=== PATIENT | female | born 1945 | race African-American/Black ===

== ENCOUNTER 2017-12-16 17:27 | Observation (INO) ==
[2017-12-16] MEDS ORDERED: 0.9 % Sodium Chloride 1,000 ML IVC ONE (17:30)
--- NOTE | 2017-12-16 17:34 | Emergency Department Note ---
Disposition Clinical Impression: Hypertensive urgency, Chest pain, Syncope and collapse Disposition: Admitted As Inpatient Condition: Good General Adult HPI - General Stated complaint: high blood pressue, loc Time Seen by Provider: 12/16/17 17:29 Source: patient, family, EMS Mode of arrival: EMS Limitations: no limitations Nursing Notes Reviewed: Yes Vital Signs Reviewed: Yes - History of Present Illness HPI Narrative: Patient presents to the ED with the chief complaint of hypertension. Patient was at the doctor's office today and had a flu shot. States that her blood pressure is running very high and she had a syncopal episode. She is been complaining of a headache, some blurry vision, no focal numbness or weakness. She is describing some chest pressure and heaviness as well as shortness of breath. Also having nausea but no abdominal pain or vomiting. No diarrhea. States she has a history of hypertension and is on "all of the medicine." - Related Data Home Medications Medication Instructions Recorded Confirmed RX: Aspirin 81 mg PO DAILY 07/18/15 12/16/17 RX: Benazepril HCl [Lotensin] 20 mg PO DAILY 07/18/15 12/16/17 RX: Docusate [Colace] 100 mg PO DAILY 07/18/15 12/16/17 RX: Fluticasone Propionate Nasal 2 spr NS DAILY 07/18/15 12/16/17 [Flonase] RX: Hydrochlorothiazide [Microzide] 12.5 mg PO DAILY 07/18/15 12/16/17 RX: Isosorbide MONOnitrate (24 HR) 30 mg PO DAILY 07/18/15 12/16/17 [Imdur] RX: Metformin HCl [Glucophage] 1,000 mg PO BID 07/18/15 12/16/17 RX: Rosuvastatin [Crestor] 20 mg PO DAILY 07/18/15 12/16/17 RX: Tolterodine Tartrate [Detrol] 2 mg PO TID 07/18/15 12/16/17 RX: cloNIDine HCl [CloNIDine HCl] 0.1 mg PO DAILY 07/18/15 12/16/17 Metoprolol Succinate [[place]apsp[place] 100 mg PO BID 12/16/17 12/16/17 Sprinkle] Allergies Allergy/AdvReac Type Severity Reaction Status Date / Time nitrofurantoin AdvReac Hives Verified 07/18/15 17:04 [From Macrodantin] Review of Systems: As reviewed in the HPI. All other systems reviewed are negative or normal. Past Medical History - Past Medical History Attestation: Yes The following information was validated with the patient. Source: patient Medical history: Reports: arthritis, cardiomyopathy (August 2012 echocardiogram demonstrated mild diastolic dysfunction with LVEF of 65% mild concentric hypertrophy. Mild mitral regurgitation and mild tricuspid regurgitation. RVSP 29 mmHg.), diabetes, GERD, hyperlipidemia, hypertension, osteoporosis, renal disease (Stress urinary incontinence), venous stasis, valvular heart disease, other (Seasonal allergies. Obesity.) Surgical history: Reports: breast surgery (Right lumpectomy.), hysterectomy, other (Bladder suspension.) Psychiatric history: Reports: no psych history - Social History Smoking Status: Never smoker Smokeless Tobacco Status: No Alcohol use: Reports: none Drug use: Reports: none Physical Exam CONSTITUTIONAL: [well appearing, alert and in no acute distress] EYES: [EOMI, clear conjunctiva, PERRLA] HENT: [Normocephalic, atraumatic, moist mucus membranes, normal oropharynx] NECK: [normal inspection, full ROM, trachea midline, no obvious swelling] PULMONARY: [normal lung sounds bilaterally, normal chest rise and fall, no respiratory distress or stridor, no wheezes, no rales, no rhonchi CARDIOVASCULAR: [regular rate, regular rhythm, normal heart sounds, no murmurs, distal extremities are warm and well perfused] GASTROINSTESTINAL: [soft, non-tender, non-rigid, non-distended, no guarding, no rebound, normal bowel sounds] GENITOURINARY/RECTAL: [deferred] NEUROLOGIC: [Alert, oriented x3, normal speech, moves all extremities] EXTREMITIES: [Normal inspection, full ROM, no tenderness, no pedal edema, normal capillary refill] MUSCULOSKELETAL: [no gross deformities, atraumatic] SKIN: [No cyanosis, no diaphoresis, normal color, warm, no rash] PSYCHIATRIC: [normal mood and affect] Course Course Narrative: Patient presenting extremely hypertensive. We will get a stat head CT and if there is no obvious stroke. We will give her IV medications appearing her blood pressure down for suspected hypertensive urgency. Patient's CT looked okay. Chest x-ray did show some pulmonary edema with an elevated BNP. Patient started on nitroglycerin drip and admitted to hospitalist service. Vital Signs Temperature 99.0 F 12/16/17 17:38 Pulse Rate 116 12/16/17 17:38 Respiratory Rate 21 12/16/17 17:38 Blood Pressure 191/89 12/16/17 17:38 O2 Sat by Pulse Oximetry 99 12/16/17 17:38 Temperature 98.5 F 12/16/17 21:04 Pulse Rate 115 12/16/17 21:04 Respiratory Rate 16 12/16/17 21:04 Blood Pressure 183/87 12/16/17 21:04 O2 Sat by Pulse Oximetry 94 12/16/17 21:04 Oxygen Delivery Oxygen Delivery Room Air Medical Decision Making - Lab Data Result diagrams: 12/16/17 17:52 12/16/17 17:52 Lab Results 12/16/17 12/16/17 12/16/17 Range/Units 17:52 17:52 17:52 WBC 10.0 (4.3-11.1) K/mcL RBC 5.17 H (3.82-4.97) M/mcL Hgb 14.4 (11.5-15.4) g/dL Hct 43.8 (35.3-44.9) % MCV 84.7 (83.0-100.0) fL MCH 27.9 L (28.0-33.3) pg MCHC 32.9 (31.6-35.5) g/dL RDW 13.2 (11.5-14.5) % Plt Count 300 (140-400) K/mcL MPV 9.5 (9.4-12.4) fL Immature Gran % 0.3 (0-4) % Seg Neutrophils % 78.2 % Lymphocytes % 14.3 % Monocytes % 6.5 % Eosinophils % 0.3 % Basophils % 0.4 % Neutrophils # 7.9 (1.6-8.9) K/mcL Lymphocytes # 1.4 (0.6-4.6) K/mcL Monocytes # 0.7 (0.0-1.3) K/mcL Eosinophils # 0.0 (0.0-0.6) K/mcL Basophils # 0.0 (0.0-0.2) K/mcL Sodium 137 (136-145) mEq/L Potassium 3.5 (3.5-5.1) mEq/L Chloride 105 (98-107) mEq/L Carbon Dioxide 21 L (23-29) mEq/L BUN 10 (8-23) mg/dL Creatinine 0.48 L (0.60-1.20) mg/dL Est GFR ( Amer) > 60 (> 60) Est GFR (Non-Af Amer) > 60 (> 60) BUN/Creatinine Ratio 21 (6-26) Glucose 182 H (70-105) mg/dL Calculated Osmolality 288 (280-300) Lactic Acid 2.0 (0.5-2.2) mmol/L Calcium 9.1 (8.6-10.3) mg/dL Phosphorus 2.6 L (2.7-4.5) mg/dL Magnesium 1.6 (1.6-2.6) mg/dL Creatine Kinase 81 (30-223) Units/L Troponin I (< 0.04) ng/mL B-Natriuretic Peptide (Less than 100) pg/mL TSH 0.649 (0.340-5.600) mcIU/mL Urine Color (Yellow) Urine Clarity (Clear) Urine pH (5.0-8.0) pH Units Ur Specific [place] (1.010-1.025) Urine Protein (Neg-Trace) mg/dL Urine Glucose (UA) (Normal) mg/dL Urine Ketones (Negative) mg/dL Urine Blood (Negative) Urine Nitrite (Negative) Urine Bilirubin (Negative) Urine Urobilinogen (Normal) mg/dL Ur Leukocyte Esterase (Negative) Urine Microscopic RBC (0-3) per hpf Urine Microscopic WBC (0-3) per hpf Ur Squamous Epith Cells (None-Few) per lpf Urine Bacteria (None-Few) per hpf Hyaline Casts (None-Few) per lpf Ur Culture Indicated? (NO) 12/16/17 12/16/17 12/16/17 Range/Units 17:52 17:52 19:03 WBC (4.3-11.1) K/mcL RBC (3.82-4.97) M/mcL Hgb (11.5-15.4) g/dL Hct (35.3-44.9) % MCV (83.0-100.0) fL MCH (28.0-33.3) pg MCHC (31.6-35.5) g/dL RDW (11.5-14.5) % Plt Count (140-400) K/mcL MPV (9.4-12.4) fL Immature Gran % (0-4) % Seg Neutrophils % % Lymphocytes % % Monocytes % % Eosinophils % % Basophils % % Neutrophils # (1.6-8.9) K/mcL Lymphocytes # (0.6-4.6) K/mcL Monocytes # (0.0-1.3) K/mcL Eosinophils # (0.0-0.6) K/mcL Basophils # (0.0-0.2) K/mcL Sodium (136-145) mEq/L Potassium (3.5-5.1) mEq/L Chloride (98-107) mEq/L Carbon Dioxide (23-29) mEq/L BUN (8-23) mg/dL Creatinine (0.60-1.20) mg/dL Est GFR ( Amer) (> 60) Est GFR (Non-Af Amer) (> 60) BUN/Creatinine Ratio (6-26) Glucose (70-105) mg/dL Calculated Osmolality (280-300) Lactic Acid (0.5-2.2) mmol/L Calcium (8.6-10.3) mg/dL Phosphorus (2.7-4.5) mg/dL Magnesium (1.6-2.6) mg/dL Creatine Kinase (30-223) Units/L Troponin I < 0.03 (< 0.04) ng/mL B-Natriuretic Peptide 75 (Less than 100) pg/mL TSH (0.340-5.600) mcIU/mL Urine Color Yellow (Yellow) Urine Clarity Clear (Clear) Urine pH 6.5 (5.0-8.0) pH Units Ur Specific [place] 1.019 (1.010-1.025) Urine Protein 30 H (Neg-Trace) mg/dL Urine Glucose (UA) 100 H (Normal) mg/dL Urine Ketones 15 H (Negative) mg/dL Urine Blood Negative (Negative) Urine Nitrite Negative (Negative) Urine Bilirubin Negative (Negative) Urine Urobilinogen Normal (Normal) mg/dL Ur Leukocyte Esterase Small H (Negative) Urine Microscopic RBC 0-3 (0-3) per hpf Urine Microscopic WBC 3-5 H (0-3) per hpf Ur Squamous Epith Cells Many H (None-Few) per lpf Urine Bacteria None Seen (None-Few) per hpf Hyaline Casts None Seen (None-Few) per lpf Ur Culture Indicated? NO. A (NO) Critical Care Time Critical Care Time: Yes Total Critical Care Time: 35 Attestation: I personally spent ___35___ minutes devoted to the care of this critically ill patient. This time excludes the time for billable procedures.
--- NOTE | 2017-12-16 17:49 | Emergency Department Note ---
Disposition Clinical Impression: Hypertensive urgency, Chest pain, Syncope and collapse Disposition: Admitted As Inpatient Condition: Good Forms: ED Satisfaction Letter, Work/School Release General Adult HPI - General Chief complaint: ED General Medical Stated complaint: high blood pressue, loc Time Seen by Provider: 12/16/17 17:29 Source: patient, family, EMS Mode of arrival: EMS Limitations: no limitations - History of Present Illness Pain Scale: 10 - Related Data Home Medications Medication Instructions Recorded Confirmed Aspirin 81 mg PO DAILY 07/18/15 07/18/15 Benazepril HCl [Lotensin] 20 mg PO DAILY 07/18/15 07/18/15 Docusate [Colace] 100 mg PO DAILY 07/18/15 07/18/15 Fluticasone Propionate Nasal 2 spr NS DAILY 07/18/15 07/18/15 [Flonase] Hydrochlorothiazide [Microzide] 12.5 mg PO DAILY 07/18/15 07/18/15 Isosorbide MONOnitrate (24 HR) 30 mg PO DAILY 07/18/15 07/18/15 [Imdur] Metformin HCl [Glucophage] 1,000 mg PO BID 07/18/15 07/18/15 Omeprazole [PriLOSEC] 20 mg PO BID 07/18/15 07/18/15 Rosuvastatin [Crestor] 20 mg PO DAILY 07/18/15 07/18/15 Tolterodine Tartrate [Detrol] 2 mg PO DAILY 07/18/15 07/18/15 cloNIDine HCl [CloNIDine HCl] 0.1 mg PO DAILY 07/18/15 07/18/15 Previous Rx's Medication Instructions Recorded Metoprolol [Lopressor] 75 mg PO BID #90 tablet 07/20/15 Nitroglycerin 0.4 mg SL Q5MIN PRN #20 tab.subl 07/20/15 Allergies Allergy/AdvReac Type Severity Reaction Status Date / Time nitrofurantoin AdvReac Hives Verified 07/18/15 17:04 [From Macrodantin] Past Medical History - Past Medical History Medical history: Reports: arthritis, cardiomyopathy, diabetes, GERD, hyperlipidemia, hypertension, osteoporosis, renal disease, venous stasis, valvular heart disease, other Surgical history: Reports: breast surgery (Right lumpectomy.), hysterectomy, other (Bladder suspension.) Psychiatric history: Reports: no psych history - Social History Smoking Status: Never smoker Smokeless Tobacco Status: No Alcohol use: Reports: none Drug use: Reports: none Physical Exam - General Limitations: no limitations General appearance: alert, in no apparent distress Course Vital Signs Temperature 99.0 F 12/16/17 17:38 Pulse Rate 116 12/16/17 17:38 Respiratory Rate 21 12/16/17 17:38 Blood Pressure 191/89 12/16/17 17:38 O2 Sat by Pulse Oximetry 99 12/16/17 17:38 Temperature 99.0 F 12/16/17 17:38 Pulse Rate 114 12/16/17 18:55 Respiratory Rate 18 12/16/17 18:55 Blood Pressure 186/100 12/16/17 18:55 O2 Sat by Pulse Oximetry 96 12/16/17 18:55 Oxygen Delivery Oxygen Delivery Room Air Medical Decision Making - MDM Narrative Medical decision making narrative: ekg with some changes as mentioned nitro gtt going ct head neg - Medical Records Medical records reviewed: Yes I reviewed the patient's medical records. - Lab Data Lab results reviewed: Yes I reviewed the patient's lab results. Result diagrams: 12/16/17 17:52 12/16/17 17:52 Lab Results 12/16/17 12/16/17 12/16/17 Range/Units 17:52 17:52 17:52 WBC 10.0 (4.3-11.1) K/mcL RBC 5.17 H (3.82-4.97) M/mcL Hgb 14.4 (11.5-15.4) g/dL Hct 43.8 (35.3-44.9) % MCV 84.7 (83.0-100.0) fL MCH 27.9 L (28.0-33.3) pg MCHC 32.9 (31.6-35.5) g/dL RDW 13.2 (11.5-14.5) % Plt Count 300 (140-400) K/mcL MPV 9.5 (9.4-12.4) fL Immature Gran % 0.3 (0-4) % Seg Neutrophils % 78.2 % Lymphocytes % 14.3 % Monocytes % 6.5 % Eosinophils % 0.3 % Basophils % 0.4 % Neutrophils # 7.9 (1.6-8.9) K/mcL Lymphocytes # 1.4 (0.6-4.6) K/mcL Monocytes # 0.7 (0.0-1.3) K/mcL Eosinophils # 0.0 (0.0-0.6) K/mcL Basophils # 0.0 (0.0-0.2) K/mcL Sodium 137 (136-145) mEq/L Potassium 3.5 (3.5-5.1) mEq/L Chloride 105 (98-107) mEq/L Carbon Dioxide 21 L (23-29) mEq/L BUN 10 (8-23) mg/dL Creatinine 0.48 L (0.60-1.20) mg/dL Est GFR ( Amer) > 60 (> 60) Est GFR (Non-Af Amer) > 60 (> 60) BUN/Creatinine Ratio 21 (6-26) Glucose 182 H (70-105) mg/dL Calculated Osmolality 288 (280-300) Lactic Acid 2.0 (0.5-2.2) mmol/L Calcium 9.1 (8.6-10.3) mg/dL Phosphorus 2.6 L (2.7-4.5) mg/dL Magnesium 1.6 (1.6-2.6) mg/dL Creatine Kinase 81 (30-223) Units/L Troponin I (< 0.04) ng/mL TSH 0.649 (0.340-5.600) mcIU/mL 12/16/17 Range/Units 17:52 WBC (4.3-11.1) K/mcL RBC (3.82-4.97) M/mcL Hgb (11.5-15.4) g/dL Hct (35.3-44.9) % MCV (83.0-100.0) fL MCH (28.0-33.3) pg MCHC (31.6-35.5) g/dL RDW (11.5-14.5) % Plt Count (140-400) K/mcL MPV (9.4-12.4) fL Immature Gran % (0-4) % Seg Neutrophils % % Lymphocytes % % Monocytes % % Eosinophils % % Basophils % % Neutrophils # (1.6-8.9) K/mcL Lymphocytes # (0.6-4.6) K/mcL Monocytes # (0.0-1.3) K/mcL Eosinophils # (0.0-0.6) K/mcL Basophils # (0.0-0.2) K/mcL Sodium (136-145) mEq/L Potassium (3.5-5.1) mEq/L Chloride (98-107) mEq/L Carbon Dioxide (23-29) mEq/L BUN (8-23) mg/dL Creatinine (0.60-1.20) mg/dL Est GFR ( Amer) (> 60) Est GFR (Non-Af Amer) (> 60) BUN/Creatinine Ratio (6-26) Glucose (70-105) mg/dL Calculated Osmolality (280-300) Lactic Acid (0.5-2.2) mmol/L Calcium (8.6-10.3) mg/dL Phosphorus (2.7-4.5) mg/dL Magnesium (1.6-2.6) mg/dL Creatine Kinase (30-223) Units/L Troponin I < 0.03 (< 0.04) ng/mL TSH (0.340-5.600) mcIU/mL - Radiology Data Radiology results reviewed: Yes I reviewed the patient's radiology results. Critical Care Time Critical Care Time: Yes Total Critical Care Time: 35 Attestation: CC time of 35 min spent in med management of HTN urgency. Nitro gtt. Attestation Statement - Attestation Attestation: I examined this patient and my medical decision-making was reviewed with the Resident Physician. I agree with the documented findings, disposition and treatment plan as described except to the extent set forth below. 72yo F here for syncope after flu shot and cocerns for HTN. pt states was at pcp and syncopized after flu shot. noted bp to be greater than 200 systolic with headache, chest pain, nausea. will do ct head, lab work. ekg is abnormal with some ST depression and t wave inversion bP is coming down; in the 190s.
[2017-12-16 18:25] LABS: Basophils % 0.4 %; Eosinophils % 0.3 %; Hematocrit 43.8 % (35.3-44.9); Hemoglobin 14.4 g/dL (11.5-15.4); Immature Granulocytes % 0.3 % (0-4); Lymphocytes # 1.4 K/mcL (0.6-4.6); Lymphocytes % 14.3 %; Mean Corpuscular HGB Conc 32.9 g/dL (31.6-35.5); Mean Corpuscular Hemoglobin 27.9 pg (28.0-33.3); Mean Corpuscular Volume 84.7 fL (83.0-100.0); Mean Platelet Volume 9.5 fL (9.4-12.4); Monocytes # 0.7 K/mcL (0.0-1.3); Monocytes % 6.5 %; Neutrophils # 7.9 K/mcL (1.6-8.9); Platelet Count 300 K/mcL (140-400); Red Blood Count 5.17 M/mcL (3.82-4.97); Red Cell Distribution Width 13.2 % (11.5-14.5); Segmented Neutrophils % 78.2 %
[2017-12-16 18:45] LABS: BUN/Creatinine Ratio 21 (6-26); Blood Urea Nitrogen 10 mg/dL (8-23); Calcium 9.1 mg/dL (8.6-10.3); Carbon Dioxide 21 mEq/L (23-29); Chloride 105 mEq/L (98-107); Creatine Kinase 81 Units/L (30-223); Glucose 182 mg/dL (70-105); Magnesium 1.6 mg/dL (1.6-2.6); Osmolality,Calculated 288 (280-300); Phosphorous 2.6 mg/dL (2.7-4.5); Potassium 3.5 mEq/L (3.5-5.1); Sodium 137 mEq/L (136-145); eGFR For Non-African Americans > 60 (> 60)
[2017-12-16 18:57] LABS: Thyroid Stimulating Hormone 0.649 mcIU/mL (0.340-5.600)
[2017-12-16] MEDS ORDERED: Nitroglycerin 25 MG/250 ML INFUS..BTL IVC SCH (19:00)
[2017-12-16 19:16] LABS: Bilirubin,Urine Negative (Negative); Blood,Urine Negative (Negative); Clarity,Urine Clear (Clear); Color,Urine Yellow (Yellow); Glucose,Urine (UA) 100 mg/dL (Normal); Ketones,Urine 15 mg/dL (Negative); Leukocyte Esterase,Urine Small (Negative); Nitrite,Urine Negative (Negative); PH,Urine 6.5 pH Units (5.0-8.0); Protein,Urine 30 mg/dL (Neg-Trace); Specific Gravity,Urine 1.019 (1.010-1.025); Urobilinogen,Urine Normal (Normal)
[2017-12-16 19:18] LABS: Bacteria,Urine None Seen per hpf (None-Few); Hyaline Casts,Urine None Seen per lpf (None-Few); RBC,Urine 0-3 per hpf (0-3); Squamous Epithelial Cell,Urine Many per lpf (None-Few)
[2017-12-16] MEDS ORDERED: Aspirin 81 MG TAB.CHEW PO ONE (20:11)
--- NOTE | 2017-12-16 20:50 | Internal Med History&Physical ---
Date of Encounter: 12/16/17 Time of Encounter: 20:46 Internal Medicine - H&P: HPI Chief complaint: High Blood Pressure History of present illness: Ms. Clark is a 72 year old female with a past medical history of diabetes, hypertension, hyperlipidemia who presents from her PCPs office with elevated blood pressure. Patient saw her PCP earlier today and states that she had a syncopal episode after receipt. Blood pressure was noted to be greater than 200 systolic associated with headache, chest pain and nausea. CT scan of the head was done here which was unremarkable. EKG showed some ST depressions and T-wave inversions. Past Med Surg Social Fam HX - Past Medical History Medical history: arthritis, cardiomyopathy, diabetes, GERD, hyperlipidemia, hypertension, osteoporosis, renal disease, venous stasis, valvular heart disease, other Additional medical history: irregular heartbeat Psychiatric history: no psych history - Past Surgical History Surgical History: breast surgery (Right lumpectomy.), hysterectomy, other (Bladder suspension.) Additional surgical history: bladder suspension - Social History Smoking Status: Never smoker Smokeless Tobacco Status: No Alcohol use: none Drug use: none - Family History Mother Hx Family Cardiac Disorders: Yes Father Hx Family Cardiac Disorders: Yes Internal Medicine - H&P: Meds Aspirin 81 mg PO DAILY 07/18/15 [History] Benazepril HCl [Lotensin] 20 mg PO DAILY 07/18/15 [History] Docusate [Colace] 100 mg PO DAILY 07/18/15 [History] Fluticasone Propionate Nasal [Flonase] 2 spr NS DAILY 07/18/15 [History] Hydrochlorothiazide [Microzide] 12.5 mg PO DAILY 07/18/15 [History] Isosorbide MONOnitrate (24 HR) [Imdur] 30 mg PO DAILY 07/18/15 [History] Metformin HCl [Glucophage] 1,000 mg PO BID 07/18/15 [History] Rosuvastatin [Crestor] 20 mg PO DAILY 07/18/15 [History] Tolterodine Tartrate [Detrol] 2 mg PO TID 07/18/15 [History] cloNIDine HCl [CloNIDine HCl] 0.1 mg PO TID 07/18/15 [History] Metoprolol Succinate [[place] Sprinkle] 100 mg PO BID 12/16/17 [History] Allergy/AdvReac Type Severity Reaction Status Date / Time nitrofurantoin AdvReac Hives Verified 07/18/15 17:04 [From Macrodantin] All Systems PM: A 10-system review of systems was performed and is negative for pertinent findings except as documented above in the HPI. - Constitutional Constitutional: no chills, no fever(s), no night sweats - EENT Eyes: no change in vision, no discharge, no pain, no photophobia Ears: no ear discharge, no ear pain, no tinnitus Nose, mouth and throat: no dysphagia, no nasal discharge, no neck pain, no sore throat - Cardiovascular Cardiovascular ROS IM: no chest pain, no diaphoresis, no dyspnea, no lightheadedness, no palpitations, no syncope - Respiratory Respiratory: no cough, no dyspnea, no wheezing, no excessive phlegm production - Gastrointestinal Gastrointestinal: no abdominal pain, no diarrhea, no hematemesis, no hematochezia, no melena, no nausea, no vomiting - Genitourinary Genitourinary: no change in urinary stream, no dysuria, no flank pain, no hematuria - Musculoskeletal Musculoskeletal ROS IM: no numbness, no tingling - Integumentary Integumentary IM: no rash, no unusual bruising - Neurological Neurological ROS: no confusion, no convulsions, no focal weakness, no numbness, no tingling, no tremor(s) - Hematologic/Lymphatic Hematologic/Lymphatic: no easy bruising - Constitutional Vitals: Temp Pulse Resp BP Pulse Ox 99.0 F 113 18 201/88 95 12/16/17 17:38 12/16/17 19:36 12/16/17 19:36 12/16/17 19:36 12/16/17 19:36 Exam: General: Alert and oriented Skin:Normal color, no rash, no lesions. HEENT:EOM, pupils equal, round and reactive. Cardiovascular:Normal S1 & S2, no rubs, murmurs or gallops. No JVD. Pulse regular. Lungs:Normal breath sounds, no wheezes or crackles. Abdomen:Soft, non-tender, no rigidity. Extremities:No deformity, no edema or tenderness, no joint swelling or clubbing. Neurological:Normal cognition and motor skills. Pulses:Carotid and radial pulses normal +2. Rest of the physical exam is non contributory Internal Med - H&P Results - Labs CBC & Chem 7: 12/18/17 03:26 12/19/17 02:49 Labs: Short CBC 12/16/17 Range/Units 17:52 WBC 10.0 (4.3-11.1) K/mcL Hgb 14.4 (11.5-15.4) g/dL Hct 43.8 (35.3-44.9) % Plt Count 300 (140-400) K/mcL Neutrophils # 7.9 (1.6-8.9) K/mcL BMP 12/16/17 17:52 Sodium 137 Potassium 3.5 Chloride 105 Carbon Dioxide 21 L BUN 10 Creatinine 0.48 L Glucose 182 H Calcium 9.1 Cardiac Enzymes 12/16/17 Range/Units 17:52 Troponin I < 0.03 (< 0.04) ng/mL Urine 12/16/17 Range/Units 19:03 Urine Color Yellow (Yellow) Urine Clarity Clear (Clear) Urine pH 6.5 (5.0-8.0) pH Units Ur Specific [place] 1.019 (1.010-1.025) Urine Protein 30 H (Neg-Trace) mg/dL Urine Glucose (UA) 100 H (Normal) mg/dL - Impressions ITS Impressions Chest X-Ray 12/16/17 17:31 IMPRESSION: 1. Cardiomegaly with mild pulmonary edema. D/ / 12/16/2017 18:15:28 Zoila Meyer MD / Soraya Valentine Interpreting Provider: Zoila Meyer MD Head CT 12/16/17 17:31 IMPRESSION: No acute intracranial abnormality. D/ / 12/16/2017 18:40:24 Zoila Meyer MD / Soraya Valentine Interpreting Provider: Zoila Meyer MD - Assessment and plan (1) Chest pain Current Visit: Yes Status: Acute Assessment and plan: Patient reports atypical chest pain in the setting of elevated blood pressure with EKG changes. Initial troponin was negative. Patient has a history of hypertension and diabetes. Looking back at previous admissions, patient underwent left heart catheterization in 2016 with findings of minimal atherosclerotic coronary artery disease and normal left ventricular end diastolic pressure. We will continue to trend. Qualifiers: Qualified Code(s): R07.9 - Chest pain, unspecified (2) Hypertensive urgency Current Visit: Yes Status: Acute Assessment and plan: Hypertensive urgency in the setting of medication noncompliance. Currently on a nitro drip. Blood pressure trending down. We will continue to slowly lower patient's blood pressure. (3) Syncope and collapse Current Visit: Yes Status: Acute Assessment and plan: Syncopal episode prior to receiving flu shot. Most likely vasovagal. However given patient's hypertension. CT scan of the head was negative. No focal neurological deficits. Possibly cardiogenic. We will obtain echocardiogram. (4) Diabetes Current Visit: No Status: Chronic Qualifiers: Diabetes mellitus type: type 2 Diabetes mellitus lobsterman insulin use: without detention use Diabetes mellitus complication status: with unspecified complications Qualified Code(s): E11.8 - Type 2 diabetes mellitus with unspe cified complications (5) Hyperlipidemia Current Visit: No Status: Chronic Qualifiers: Hyperlipidemia type: unspecified Qualified Code(s): E78.5 - Hyperlipidemia, unspecified (6) Hypertension Current Visit: No Status: Chronic Qualifiers: Hypertension type: unspecified secondary hypertension Qualified Code(s): I15.9 - Secondary hypertension, unspecified - Time Spent With Patient Total time spent is greater than 50% in coordination of care (as documented) at patient's floor/unit and/or counseling patient:
[2017-12-16] MEDS ORDERED: Naloxone 0.4 MG/ML INJ IVP PRN (20:54)
[2017-12-16] MEDS ORDERED: D5% in Water 1,000 ML IVC PRN (21:04)
[2017-12-16] MEDS ORDERED: Dextrose Gel 15 GM/37.5 ML TUBE PO PRN ×2 (21:04)
[2017-12-16] MEDS ORDERED: *HR* Dextrose 50 % in Water (Syg) 50 ML SYRINGE IVP PRN (21:04)
[2017-12-16] MEDS ORDERED: *HR* Heparin 5,000 UNIT/ML VIAL SQ SCH (22:00)
[2017-12-16] MEDS: Metoprolol XL (24 HR) Succ 50 MG TAB.ER.24H PO SCH (22:32)
[2017-12-16] MEDS: Insulin LISPRO 300 UNITS/3 ML VIAL SQ SCH (22:53)
[2017-12-16] MEDS ORDERED: *HR* Heparin 5,000 UNIT/ML VIAL IVP ONE (22:58)
[2017-12-16] MEDS ORDERED: *HR* Heparin 5,000 UNIT/ML VIAL IVP PRN ×2 (22:58)
[2017-12-16] MEDS ORDERED: Heparin 25,000 UNIT/500 ML D5W 25,000 UNIT/500 ML BAG IVC SCH (23:00)
[2017-12-17 00:29] LABS: Hematocrit 39.4 % (35.3-44.9); Mean Corpuscular Hemoglobin 27.7 pg (28.0-33.3); Mean Corpuscular Volume 83.8 fL (83.0-100.0); Mean Platelet Volume 9.5 fL (9.4-12.4); Platelet Count 298 K/mcL (140-400); Red Cell Distribution Width 13.3 % (11.5-14.5)
[2017-12-17 00:30] LABS: Heparin anti-factor XA UFH 0.01 IU/mL (0.30-0.70)
[2017-12-17 00:31] LABS: INR 1.1; Prothrombin Time 12.5 Seconds (9.4-12.1)
[2017-12-17] MEDS ORDERED: 0.9 % Sodium Chloride 1,000 ML ONE ×2 (05:35→07:57)
[2017-12-17 07:29] LABS: Basophils % 0.5 %; Eosinophils # 0.1 K/mcL (0.0-0.6); Eosinophils % 1.8 %; Hematocrit 38.3 % (35.3-44.9); Hemoglobin 12.9 g/dL (11.5-15.4); Immature Granulocytes % 0.2 % (0-4); Lymphocytes # 1.9 K/mcL (0.6-4.6); Lymphocytes % 30.1 %; Mean Corpuscular HGB Conc 33.7 g/dL (31.6-35.5); Mean Corpuscular Hemoglobin 28.5 pg (28.0-33.3); Mean Corpuscular Volume 84.5 fL (83.0-100.0); Mean Platelet Volume 9.9 fL (9.4-12.4); Monocytes # 0.5 K/mcL (0.0-1.3); Monocytes % 8.7 %; Neutrophils # 3.6 K/mcL (1.6-8.9); Platelet Count 289 K/mcL (140-400); Red Blood Count 4.53 M/mcL (3.82-4.97); Red Cell Distribution Width 13.8 % (11.5-14.5); Segmented Neutrophils % 58.7 %
[2017-12-17] MEDS: hydroCHLOROthiazide 25 MG TABLET PO SCH (07:38)
[2017-12-17] MEDS: Aspirin 81 MG TAB.CHEW PO SCH (07:39)
[2017-12-17] MEDS: Metoprolol XL (24 HR) Succ 50 MG TAB.ER.24H PO SCH ×2 (07:40→20:55)
[2017-12-17] MEDS: Isosorbide MONOnitrate (24 HR) 30 MG TAB.ER.24H PO SCH (07:40)
[2017-12-17] MEDS: Insulin LISPRO 300 UNITS/3 ML VIAL SQ SCH ×4 (07:41→21:43)
[2017-12-17] MEDS: Fluticasone Propionate Nasal 50 MCG/SPRAY BOTTLE NS SCH (07:42)
[2017-12-17 07:49] LABS: Alanine Aminotransferase 10 Units/L (7-52); Albumin 3.6 g/dL (3.5-5.7); Albumin/Globulin Ratio 1.5 (1.1-2.2); Alkaline Phosphatase 86 Units/L (34-104); Aspartate Amino Transferase 12 Units/L (13-39); BUN/Creatinine Ratio 15 (6-26); Bilirubin,Total 0.5 mg/dL (0.3-1.0); Blood Urea Nitrogen 6 mg/dL (8-23); Calcium 8.6 mg/dL (8.6-10.3); Carbon Dioxide 20 mEq/L (23-29); Chloride 109 mEq/L (98-107); Globulin 2.4 g/dL (2.4-3.5); Glucose 197 mg/dL (70-105); Magnesium 1.7 mg/dL (1.6-2.6); Osmolality,Calculated 287 (280-300); Potassium 3.5 mEq/L (3.5-5.1); Sodium 137 mEq/L (136-145); eGFR For Non-African Americans > 60 (> 60)
[2017-12-17] MEDS ORDERED: cloNIDine HCl 0.1 MG TABLET PO SCH (09:00)
[2017-12-17] MEDS ORDERED: Lisinopril 20 MG TABLET PO SCH (09:00)
--- NOTE | 2017-12-17 10:46 | Cardiology Consult Note ---
Date of Encounter: 12/17/17 Time of Encounter: 10:45 Assessment and Plan (1) Chest pain Current Visit: Yes Status: Acute Per Cardiology: ECG comparable to baseline and has LVH appearance. Atypical chest pain occurring at rest and reproducible today upon palpation. Has hx of persistent intermittent dry hacking cough over the past one year. Troponins negative 3. He underwent left heart catheterization for abnormal stress test results June 2015 and showed Prox. circumflex nonobstructive 20% lesion only. Echo pending. Will await echo results. Would not recommend stress testing or further ischemic evaluation this time unless any abnormal findings on echo-- additionally, patient has eaten today, on long-acting nitrate, and nitro drip. Additionally, has history of abnormal stress test in the past with nonobstructive CAD with subsequent catheterization. On aspirin, statin, beta melvin, ANDRE inhibitor, long-acting nitrate. We will discontinue IV heparin drip-- will resume subcutaneous heparin for DVT prophylaxis. Qualifiers: Qualified Code(s): R07.9 - Chest pain, unspecified (2) Hypertensive urgency Current Visit: Yes Status: Acute Per Cardiology: Appears improved. Patient reports recent medical noncompliance due to running out of medications over the past few days. Will increase ANDRE inhibitor and attempt weaning off nitro drip. (3) Syncope and collapse Current Visit: Yes Status: Acute Per Cardiology: Echo and carotid duplex pending. Telemetry reviewed with sinus rhythm average heart rate 86 and a couple episodes of atrial tachycardia. Check orthostatics. Discussion w patient/family: The assessment and plan as outlined above was discussed with the patient and/or family members who expressed understanding and agreement. All questions were answered. Thank you for involving us in the care of your patient. Please call with any questions. History of Present Illness Consult date: 12/17/17 Requesting physician: Nicky Cohen Consult reason: CP Chief complaint: CP, Passed Out History of present illness: Ms. Clark is a 72 year old AA female with a relevant past mental history of DM 2, HTN, HLD, GERD, obesity, and nonobstructive CAD on catheterization June 2015. Cardiology consult for chest pain in setting of hypertension and concerns of ECG changes. Patient reports has been experiencing persistent cough for the past one year with occasional production of clear sputum. She reports occasional with coughing she developed nausea with vomiting. She reports intermittent left anterior chest wall and mid epigastric pain and discomfort with palpation. She reports symptoms somewhat worsening with coughing. She reports recently ran out of medications and had been taking for the past few days. She reports yesterday followed up with PCP and noted to be hypertensive. She reports episodes of getting off exam table and apparently passed out-- he should not cannot recall details around situation. She denies any palpitations. Denies any awareness of any active bleeding or blood loss. Denies any recent fever, chills, diarrhea. Past Med Surg Social Fam HX - Past Medical History Attestation: Yes The following information was validated with the patient. Source: patient, old records reviewed Medical history: arthritis, cardiomyopathy (August 2012 echocardiogram demonstrated mild diastolic dysfunction with LVEF of 65% mild concentric hypertrophy. Mild mitral regurgitation and mild tricuspid regurgitation. RVSP 29 mmHg.), diabetes, GERD, hyperlipidemia, hypertension, osteoporosis, renal disease (Stress urinary incontinence), venous stasis, valvular heart disease, other (Seasonal allergies. Obesity.) Additional medical history: irregular heartbeat Psychiatric history: no psych history - Past Surgical History Surgical History: breast surgery (Right lumpectomy.), hysterectomy, other (Bladder suspension.) Additional surgical history: bladder suspension - Social History Smoking Status: Never smoker Smokeless Tobacco Status: No Alcohol use: none Drug use: none - Family History Mother Hx Family Cardiac Disorders: Yes Father Hx Family Cardiac Disorders: Yes Medications and Allergies Aspirin 81 mg PO DAILY 07/18/15 [History] Benazepril HCl [Lotensin] 20 mg PO DAILY 07/18/15 [History] Docusate [Colace] 100 mg PO DAILY 07/18/15 [History] Fluticasone Propionate Nasal [Flonase] 2 spr NS DAILY 07/18/15 [History] Hydrochlorothiazide [Microzide] 12.5 mg PO DAILY 07/18/15 [History] Isosorbide MONOnitrate (24 HR) [Imdur] 30 mg PO DAILY 07/18/15 [History] Metformin HCl [Glucophage] 1,000 mg PO BID 07/18/15 [History] Rosuvastatin [Crestor] 20 mg PO DAILY 07/18/15 [History] Tolterodine Tartrate [Detrol] 2 mg PO TID 07/18/15 [History] cloNIDine HCl [CloNIDine HCl] 0.1 mg PO DAILY 07/18/15 [History] Metoprolol Succinate [[place] Sprinkle] 100 mg PO BID 12/16/17 [History] Allergy/AdvReac Type Severity Reaction Status Date / Time nitrofurantoin AdvReac Hives Verified 07/18/15 17:04 [From Macrodantin] All Systems Review: The remainder of the systems were reviewed and are negative - Cardiovascular Cardiovascular: as per HPI, chest pain at rest, lightheadedness, syncope - Respiratory Respiratory: cough - Gastrointestinal Gastrointestinal: nausea Physical Examination Vital Signs, Last 4 Hours Temp Pulse Resp BP Pulse Ox 12/17/17 07:04 98.1 F 84 12 168/91 94 General: Conversant, No Apparent Distress HEENT: Atraumatic, Normocephaly, Mucus Membranes Moist Neck: No JVD, Normal carotid pulses Cardiac: Reg Rate and Rhythm, Normal S1 and S2, No Murmur Lungs: Normal Breath Sounds, No Wheeze, Rales, Rhonchi, Other (Positive dry cough noted) Neuro: Alert and responsive, No focal deficits noted Abdomen: Soft, Non-Tender Skin: No rashes noted on visualized skin Musculoskeletal: No Chest Wall Tenderness Extremities: No Clubbing, No Cyanosis, No Edema, Normal Pulses Results 12/17/17 06:43 12/17/17 06:43 Lab Results Laboratory Tests 12/16/17 12/16/17 12/16/17 17:52 17:52 23:58 Hgb Hct INR Creatinine Est GFR ( Amer) Magnesium AST ALT Troponin I < 0.03 0.03 TSH 0.649 12/16/17 12/17/17 12/17/17 23:58 06:43 06:43 Hgb 12.9 Hct 38.3 INR 1.1 Creatinine 0.41 L Est GFR ( Amer) > 60 Magnesium 1.7 AST 12 L ALT 10 Troponin I TSH 12/17/17 06:43 Hgb Hct INR Creatinine Est GFR ( Amer) Magnesium AST ALT Troponin I < 0.03 TSH ITS Impressions Chest X-Ray 12/16/17 17:31 IMPRESSION: 1. Cardiomegaly with mild pulmonary edema. D/ / 12/16/2017 18:15:28 Zoila Meyer MD / Soraya Valentine Interpreting Provider: Zoila Meyer MD Head CT 12/16/17 17:31 IMPRESSION: No acute intracranial abnormality. D/ / 12/16/2017 18:40:24 Zoila Meyer MD / Soraya Valentine Interpreting Provider: Zoila Meyer MD Active Medications Aspirin (Aspirin) 81 mg PO DAILY [facility] Stop: 06/18/18 09:01 Last Admin: 12/17/17 07:39 Dose: 81 mg Clonidine HCl (Clonidine Hcl) 0.1 mg PO DAILY [facility] Stop: 06/18/18 09:01 Last Admin: 12/17/17 07:39 Dose: 0.1 mg Dextrose/Water (Dextrose 50% (Syg)) 25 ml IVP AD PRN PRN Reason: Hypoglycemia Stop: 06/17/18 21:05 Docusate Sodium (Colace) 100 mg PO DAILY [facility]; Protocol Stop: 06/18/18 09:01 Last Admin: 12/17/17 07:40 Dose: 100 mg Fluticasone Propionate (Flonase) 100 mcg NS DAILY [facility]; Protocol Stop: 06/18/18 09:01 Last Admin: 12/17/17 07:42 Dose: 100 mcg Glucagon (Glucagen) 1 mg IM ONCE PRN PRN Reason: Hypoglycemia Stop: 06/17/18 21:05 Glucose (Gluctose) 15 gm PO ONCE PRN PRN Reason: Hypoglycemia Stop: 06/17/18 21:05 Glucose (Gluctose) 30 gm PO ONCE PRN PRN Reason: Hypoglycemia Stop: 06/17/18 21:05 Heparin Sodium (Porcine) (Heparin) 6,800 unit 70 unit/kg (6800 unit) IVP Q6HR PRN PRN Reason: SEE COMMENTS Stop: 06/17/18 22:59 Heparin Sodium (Porcine) (Heparin) 3,400 unit 35 unit/kg (3400 unit) IVP Q6H PRN PRN Reason: SEE COMMENTS Stop: 06/17/18 22:59 Hydrochlorothiazide (Hydrochlorothiazide) 12.5 mg PO DAILY [facility] Stop: 06/18/18 09:01 Last Admin: 12/17/17 07:38 Dose: 12.5 mg Nitroglycerin (Nitroglycerin Premix 25 Mg/250 Ml) 25 mg in 250 mls @ 3 mls/hr IVC .Q24H [facility]; Protocol Stop: 06/17/18 19:01 Last Titration: 12/17/17 08:00 Dose: 10 mcg/min, 6 mls/hr Dextrose (Dextrose 5%) 1,000 mls @ 100 mls/hr IVC .Q10H PRN PRN Reason: HYPOGLYCEMIA Stop: 06/17/18 21:05 Heparin Sodium/Dextrose (Heparin 25,000 Unit/500 Ml D5w) 25,000 unit in 500 mls @ 27.3 mls/hr IVC .[id number] [facility]; Protocol Stop: 06/17/18 23:01 Last Titration: 12/17/17 08:57 Dose: 10.92 unit/kg/hr, 21.3 mls/hr Insulin Human Lispro (Humalog) 0 units SQ TIDAC [facility] [place]; Protocol Stop: 06/17/18 21:16 Last Admin: 12/17/17 07:41 Dose: 2 units Isosorbide Mononitrate (Imdur) 30 mg PO DAILY [facility] Stop: 06/18/18 09:01 Last Admin: 12/17/17 07:40 Dose: 30 mg Lisinopril (Zestril) 20 mg PO DAILY [facility] [place] Stop: 06/18/18 09:01 Last Admin: 12/17/17 07:39 Dose: 20 mg Metoprolol Succinate (Toprol Xl) 100 mg PO BID [facility] [place] Stop: 06/17/18 21:01 Last Admin: 12/17/17 07:40 Dose: 100 mg Naloxone HCl (Narcan) 0.4 mg IVP Q2MIN PRN PRN Reason: SEE COMMENTS Stop: 06/17/18 20:55 Oxybutynin Chloride (Ditropan) 5 mg PO TID [facility] [place] Stop: 06/17/18 21:01 Last Admin: 12/17/17 07:39 Dose: 5 mg Rosuvastatin Calcium (Crestor) 20 mg PO HS [facility] Stop: 06/18/18 21:01 - Imaging and Cardiology Stress Test: report reviewed Echo: report reviewed Cardiac cath: report reviewed Consult Discharge Plan - Plan Referrals: Livan Ricardo, [Primary Care Provider] -
[2017-12-17] MEDS ORDERED: Lisinopril 20 MG TABLET PO ONE (11:15)
[2017-12-17] MEDS: Furosemide 40 MG/4 ML VIAL IVP SCH ×2 (15:21→20:56)
[2017-12-17] MEDS: *HR* Heparin 5,000 UNIT/ML VIAL SQ SCH (17:16)
--- NOTE | 2017-12-17 19:21 | Event Note ---
Date of Encounter: 12/17/17 Time of Encounter: 14:00 - Cardiology Event Note Discussed and reviewed with hospitalist service, Cardiology will s/o, follow-up arranged, please re-consult if any abnormal findings with echo.
--- NOTE | 2017-12-17 19:21 | Internal Med Progress Note ---
<Gracia Vigil - Last Filed: 12/17/17 15:05> Hospitalist Progress Note - Encounter Date of Encounter: 12/17/17 Time of Encounter: 08:45 - Subjective Interval History: Pt seen and examined at bedside. Hospital day 1. Pt states she went to her PCP yesterday for high blood pressure. She presented to [facility] yesterday afternoon following a syncopal episode after receiving a flu shot at her PCP office, after she regained consciousness she felt weak, but denied incontinence. At the ED pt was c/o left sided sharp chest pain, nausea, H/A, eye pain and scotomas. Pt has a chronic h/o DM, HTN, HLD, cardiomyopathy, valvular disease and renal disease. EKG showed ST segment depressions and T wave inversions. CT of the head was unremarkable. Today pt resting comfortably in her bed. She c/o left sided sharp chest pain that does not radiate, chest pressure, diaphoresis mostly occurring at night, nausea, vomiting (mostly mucus), SOB, weakness, numbness/tingling in UE bilaterally and LE bilaterally, dysuria, and vertigo. Pt denies diarrhea, hematuria, vision changes, and confusion. Nursing staff reports that pt seems afraid to stand up and walk to bathroom in fear of another syncopal episode. - Exam Vitals: Temp Pulse Resp BP Pulse Ox 98.7 F 83 12 145/91 95 12/17/17 12:26 12/17/17 12:26 12/17/17 12:26 12/17/17 12:26 12/17/17 12:26 Exam: General: AAOX3, NAD, WDWN HEENT: normocephalic, atraumatic Cardiovascular: RRR, no rubs, no murmurs Lungs: CTAB, no wheezing Abdomen: Normal BSX4, soft, nondistended, mild diffuse abdominal tenderness to palpation Extremities: no leg edema, no leg erythema Skin: warm, dry, no lesions - Assessment and Plan (1) Chest pain Current Visit: Yes Status: Acute Assessment and Plan: 72 yo female with PMH of HTN, HLD, cardiomyopathy presents with syncopal episode with chest pain and elevated blood pressure. LHC in 2016 showing proximal circumflex nonobstructive 20% lesion EKG showed ST depression and T wave inversion this was unchanged from previous EKGs (2016) troponins negative X 3 previous echo in 07/19/15 showed LVEF >70, moderate concentric LVH, left ventricular outflow tract obstruction chest x-ray showed cardiomegaly with mild pulmonary edema no evidence of infiltrates pt sxs right calf pain and dyspnea, wells score of 1 plan -on nitroglycerin, wean off nitro drip per cardiology -pain control -f/u echo -f/u LE venous doppler (2) Hypertensive urgency Current Visit: Yes Status: Acute Assessment and Plan: presented with intial BP 191/89, patient noncompliant with medications BP 168/91 on 12/17/17 at 7:04-->145/91 on 12/17/17 at 12:26 plan -on Imdur -on nitroglycerin, wean off nitro drip per cardiology -continue lisinopril (increase dosage per cardiology), metoprolol, HCTZ and furosemide -continue to monitor (3) Syncope and collapse Current Visit: Yes Status: Acute Assessment and Plan: pt reported syncopal episode after receiving flu shot at her PCP office yesterday denies post-ictal state, no reported convulsions, no incontinence or tongue biting orthostatics were negative, CT head negative, likely vasovagal syncope, no evidence of CHF exacerbation plan -echo and carotid duplex pending, telemetry showed sinus rhythm and some episodes of atrial tachycardia per cardiology (4) Diabetes Current Visit: No Status: Chronic Assessment and Plan: pt has a h/o chronic h/o T2DM glucose 182 yesterday-->this AM 197 Plan -on low dose sliding scale (5) Hyperlipidemia Current Visit: No Status: Chronic Assessment and Plan: pt has h/o chronic HLD Plan -on rosuvastatin (6) DVT prophylaxis Current Visit: Yes Status: Acute Assessment and Plan: plan -cardiology will d/c IV heparin drip and resume subcutaneous heparin - Time Spent with Patient Total time spent is greater than 50% in coordination of care (as documented) at patient's floor/unit and/or counseling patient: Internal Medicine: Result - Labs CBC & Chem 7: 12/17/17 06:43 12/17/17 06:43 Labs: Short CBC 12/16/17 12/16/17 12/17/17 Range/Units 17:52 23:58 06:43 WBC 10.0 8.0 6.2 (4.3-11.1) K/mcL Hgb 14.4 13.0 12.9 (11.5-15.4) g/dL Hct 43.8 39.4 38.3 (35.3-44.9) % Plt Count 300 298 289 (140-400) K/mcL Neutrophils # 7.9 3.6 (1.6-8.9) K/mcL BMP 12/16/17 12/17/17 17:52 06:43 Sodium 137 137 Potassium 3.5 3.5 Chloride 105 109 H Carbon Dioxide 21 L 20 L BUN 10 6 L Creatinine 0.48 L 0.41 L Glucose 182 H 197 H Calcium 9.1 8.6 Cardiac Enzymes 12/16/17 12/16/17 12/17/17 Range/Units 17:52 23:58 06:43 Troponin I < 0.03 0.03 < 0.03 (< 0.04) ng/mL Liver Function 12/17/17 Range/Units 06:43 Total Bilirubin 0.5 (0.3-1.0) mg/dL AST 12 L (13-39) Units/L ALT 10 (7-52) Units/L Alkaline Phosphatase 86 (34-104) Units/L Albumin 3.6 (3.5-5.7) g/dL Urine 12/16/17 Range/Units 19:03 Urine Color Yellow (Yellow) Urine Clarity Clear (Clear) Urine pH 6.5 (5.0-8.0) pH Units Ur Specific Jackson 1.019 (1.010-1.025) Urine Protein 30 H (Neg-Trace) mg/dL Urine Glucose (UA) 100 H (Normal) mg/dL - ABG Interpretation ABG results: PT/INR, D-dimer PT 12.5 Seconds (9.4-12.1) H 12/16/17 23:58 - Impressions Impressions Chest X-Ray 12/16/17 17:31 IMPRESSION: 1. Cardiomegaly with mild pulmonary edema. D/ / 12/16/2017 18:15:28 Zoila Meyer MD / Soraya Valentine Interpreting Provider: Zoila Meyer MD Head CT 12/16/17 17:31 IMPRESSION: No acute intracranial abnormality. D/ / 12/16/2017 18:40:24 Zoila Meyer MD / Soraya Valentine Interpreting Provider: Zoila Meyer MD Consult Discharge Plan - Plan Referrals: Livan Ricardo DO [Primary Care Provider] - <YefriFina - Last Filed: 12/17/17 15:47> Hospitalist Progress Note - Subjective Interval History: 72 y/o F with PMHx Cardiomyopathy, DMII, HTN, HLD, obesity presents after syncopal episode at PCP and elevated BP. Additionally complained of nausea, headache, sharp localized left-sided chest pain, dyspnea. Syncopal episode only lasted a few seconds, and occurred after flu vaccine yesterday. Denies urinary incontinence, post-ictal state, tongue biting, or witnessed seizure. Denies hx of syncopal episode in the past. In ED, BP noted to be 191/89. Also noted chest pressure. Troponins negative x 3. EKG indicated abnormal st depression and t wave inversion, but unchanged from previous EKG last year. CXR indicated cardiomegaly w/ mild pulm edema. CT head negative. UA essentially negative. Electrolytes benign. Pt seen and examined this morning resting at bedside in no acute distress. Pleasant mood, eating breakfast. Notes mild headache, nausea, SOB, lightheadedness, and sharp left-sided reproducible chest pain. Denies vomiting, diarrhea, numbness, weakness of extremities. Per nursing staff, pt is hesitant to stand and walk around s/p syncopal episode. I have re-performed and reviewed the history documented by the medical student, and I confirm its accuracy except as noted below - Exam Vitals: Temp Pulse Resp BP Pulse Ox 98.7 F 83 12 145/91 95 12/17/17 12:26 12/17/17 12:26 12/17/17 12:26 12/17/17 12:26 12/17/17 12:26 Exam: GEN: AOx3; NAD HEENT: Full ROM; EOMI CARDIO: RRR, No murmurs rubs gallops; Left sided reproducible chest pain RESP: CTAB, no wheezes rales rhonchi ABD: Diffuse tenderness to palpation; soft, non-distended EXT: mild right lower extremity calf tenderness to palpation; No swelling, no erythema, no visible distended veins - Assessment and Plan (1) Syncope and collapse Current Visit: Yes Status: Acute Assessment and Plan: Syncopal episode at PCP office SXS: Denies incontinence, tongue biting, post-ictal state; denies head trauma, fall; denies chest pain, SOB Orthostatics today negative; EKG unchanged from previous; CT head negative PLAN: F/U Echo F/U Carotid Duplex Vitals q4 Accucheck qhs (2) Chest pain Current Visit: Yes Status: Acute Assessment and Plan: Reproducible left sided chest pain on presentation; Associated with pressure sensation, dyspnea on exertion, headache, lightheadedness; Denies nausea, jaw pain, arm pain; Elevated BP to 191/89 in ED; PE: left sided reproducible chest pain; right lower extremity calf pain EKG - ST depression and T wave inversions - unchanged from previous in 2017 Troponins negative x 3 CXR: cardiomegaly with mild pulm edema Wells Score = 1 PLAN: F/U Echo F/U carotid duplex F/U lower extremity doppler Cont pain control as needed (3) Hypertensive urgency Current Visit: Yes Status: Acute Assessment and Plan: Initial BP in ED: 191/89 Current BP: 135/78 PLAN: Wean off nitro drip Cont HCTZ Cont Furosemide Cont Lisinopril (Will increase) Cont Metoprolol MOnitor (4) Diabetes Current Visit: No Status: Chronic Assessment and Plan: Low dose sliding scale (5) Hyperlipidemia Current Visit: No Status: Chronic Assessment and Plan: Cont rosuvastatin DVT Prophylaxis: Cont SQ heparin - Time Spent with Patient Total time spent is greater than 50% in coordination of care (as documented) at patient's floor/unit and/or counseling patient: less than 15 minutes Plan of Care Discussed with: patient Internal Medicine: Result - Labs CBC & Chem 7: 12/17/17 06:43 12/17/17 06:43 Labs: Short CBC 12/16/17 12/16/17 12/17/17 Range/Units 17:52 23:58 06:43 WBC 10.0 8.0 6.2 (4.3-11.1) K/mcL Hgb 14.4 13.0 12.9 (11.5-15.4) g/dL Hct 43.8 39.4 38.3 (35.3-44.9) % Plt Count 300 298 289 (140-400) K/mcL Neutrophils # 7.9 3.6 (1.6-8.9) K/mcL BMP 12/16/17 12/17/17 17:52 06:43 Sodium 137 137 Potassium 3.5 3.5 Chloride 105 109 H Carbon Dioxide 21 L 20 L BUN 10 6 L Creatinine 0.48 L 0.41 L Glucose 182 H 197 H Calcium 9.1 8.6 Cardiac Enzymes 12/16/17 12/16/17 12/17/17 Range/Units 17:52 23:58 06:43 Troponin I < 0.03 0.03 < 0.03 (< 0.04) ng/mL Liver Function 12/17/17 Range/Units 06:43 Total Bilirubin 0.5 (0.3-1.0) mg/dL AST 12 L (13-39) Units/L ALT 10 (7-52) Units/L Alkaline Phosphatase 86 (34-104) Units/L Albumin 3.6 (3.5-5.7) g/dL Urine 12/16/17 Range/Units 19:03 Urine Color Yellow (Yellow) Urine Clarity Clear (Clear) Urine pH 6.5 (5.0-8.0) pH Units Ur Specific Jackson 1.019 (1.010-1.025) Urine Protein 30 H (Neg-Trace) mg/dL Urine Glucose (UA) 100 H (Normal) mg/dL - ABG Interpretation ABG results: PT/INR, D-dimer PT 12.5 Seconds (9.4-12.1) H 12/16/17 23:58 - Impressions Impressions Chest X-Ray 12/16/17 17:31 IMPRESSION: 1. Cardiomegaly with mild pulmonary edema. D/ / 12/16/2017 18:15:28 Zoila Meyer MD / Soraya Valentine Interpreting Provider: Zoila Meyer MD Head CT 12/16/17 17:31 IMPRESSION: No acute intracranial abnormality. D/ / 12/16/2017 18:40:24 Zoila Meyer MD / Soraya Valentine Interpreting Provider: Zoila Meyer MD <Taylor Lloyd - Last Filed: 12/17/17 17:57> Hospitalist Progress Note - Exam Vitals: Temp Pulse Resp BP Pulse Ox 97.5 F L 78 12 147/73 94 12/17/17 17:11 12/17/17 17:11 12/17/17 17:11 12/17/17 17:11 12/17/17 17:11 - Assessment and Plan (1) Diabetes Current Visit: No Status: Chronic (2) Hyperlipidemia Current Visit: No Status: Chronic (3) Hypertension Current Visit: No Status: Chronic (4) Hypertensive urgency Current Visit: Yes Status: Acute (5) Chest pain Current Visit: Yes Status: Acute (6) Syncope and collapse Current Visit: Yes Status: Acute - Time Spent with Patient Total time spent is greater than 50% in coordination of care (as documented) at patient's floor/unit and/or counseling patient: Internal Medicine: Result - Labs CBC & Chem 7: 12/17/17 06:43 12/17/17 06:43 Labs: Short CBC 12/16/17 12/16/17 12/17/17 Range/Units 17:52 23:58 06:43 WBC 10.0 8.0 6.2 (4.3-11.1) K/mcL Hgb 14.4 13.0 12.9 (11.5-15.4) g/dL Hct 43.8 39.4 38.3 (35.3-44.9) % Plt Count 300 298 289 (140-400) K/mcL Neutrophils # 7.9 3.6 (1.6-8.9) K/mcL BMP 12/16/17 12/17/17 17:52 06:43 Sodium 137 137 Potassium 3.5 3.5 Chloride 105 109 H Carbon Dioxide 21 L 20 L BUN 10 6 L Creatinine 0.48 L 0.41 L Glucose 182 H 197 H Calcium 9.1 8.6 Cardiac Enzymes 12/16/17 12/16/17 12/17/17 Range/Units 17:52 23:58 06:43 Troponin I < 0.03 0.03 < 0.03 (< 0.04) ng/mL Liver Function 12/17/17 Range/Units 06:43 Total Bilirubin 0.5 (0.3-1.0) mg/dL AST 12 L (13-39) Units/L ALT 10 (7-52) Units/L Alkaline Phosphatase 86 (34-104) Units/L Albumin 3.6 (3.5-5.7) g/dL Urine 12/16/17 Range/Units 19:03 Urine Color Yellow (Yellow) Urine Clarity Clear (Clear) Urine pH 6.5 (5.0-8.0) pH Units Ur Specific Jackson 1.019 (1.010-1.025) Urine Protein 30 H (Neg-Trace) mg/dL Urine Glucose (UA) 100 H (Normal) mg/dL - ABG Interpretation ABG results: PT/INR, D-dimer PT 12.5 Seconds (9.4-12.1) H 12/16/17 23:58 - Impressions Impressions Chest X-Ray 12/16/17 17:31 IMPRESSION: 1. Cardiomegaly with mild pulmonary edema. D/ / 12/16/2017 18:15:28 Zoila Meyer MD / Soraya Valentine Interpreting Provider: Zoila Meyer MD Head CT 12/16/17 17:31 IMPRESSION: No acute intracranial abnormality. D/ / 12/16/2017 18:40:24 Zoila Meyer MD / Soraya Valentine Interpreting Provider: Zoila Meyer MD Echocardiogram 12/17/17 13:00 Impressions: LVEF 65-70%. Moderate concentric left ventricular hypertrophy. Mild left ventricular diastolic dysfunction. Mildly dilated left atrium. Normal right ventricular structure and function. Mild mitral regurgitation. Mild-moderate tricuspid regurgitation. - Attending Attestation I examined this patient and my medical decision-making was reviewed with the Resident Physician. I agree with the documented findings, disposition and treatment plan as described except to the extent set forth below. Patient presented from PCP office for high blood pressure and also had syncopal episode. She also describes atypical chest pain. She had an ECG that is near basline. Troponin are negative x3. She had stress test followed by [facility] in 2016 and showed proximal circumflex artery with 20% lesion, non-obstrcuted. Patient has not had her home medications, including antihypertensives, for several days. Presented with hypertension, that is gradually improving with resuming home medications. She appears fluid overloaded on exam with 1+ bipedal edema and course rales in lung gonzalez on auscultation. Will continue diuresis, and follow-up with echocardiogram. Cardiology has evaluated patient and discussed case. We will consult Cardiology if the echocardiogram is abnormal. Continue home medications but we will discontinue her home clonidine and increase her ANDRE inhibitor <Gracia Vigil - Last Filed: 12/17/17 15:05> (1) Chest pain Qualifiers: Chest pain type: unspecified Qualified Code(s): R07.9 - Chest pain, unspecified (4) Diabetes Qualifiers: Diabetes mellitus type: type 2 Diabetes mellitus mcfp insulin use: without mcfp use Diabetes mellitus complication status: with unspecified complications Qualified Code(s): E11.8 - Type 2 diabetes mellitus with unspecified complications (5) Hyperlipidemia Qualifiers: Hyperlipidemia type: unspecified Qualified Code(s): E78.5 - Hyperlipidemia, unspecified <Fina Asif - Last Filed: 12/17/17 15:47> (2) Chest pain Qualifiers: Chest pain type: unspecified Qualified Code(s): R07.9 - Chest pain, unspecified (4) Diabetes Qualifiers: Diabetes mellitus type: type 2 Diabetes mellitus mcfp insulin use: without mcfp use Diabetes mellitus complication status: with unspecified complications Qualified Code(s): E11.8 - Type 2 diabetes mellitus with unspecified complications (5) Hyperlipidemia Qualifiers: Hyperlipidemia type: unspecified Qualified Code(s): E78.5 - Hyperlipidemia, unspecified <Taylor Lloyd - Last Filed: 12/17/17 17:57> (1) Diabetes Qualifiers: Diabetes mellitus type: type 2 Diabetes mellitus superintendent container terminal insulin use: without superintendent container terminal use Diabetes mellitus complication status: with unspecified complications Qualified Code(s): E11.8 - Type 2 diabetes mellitus with unspecified complications (2) Hyperlipidemia Qualifiers: Hyperlipidemia type: unspecified Qualified Code(s): E78.5 - Hyperlipidemia, unspecified (3) Hypertension Qualifiers: Hypertension type: unspecified secondary hypertension Qualified Code(s): I15.9 - Secondary hypertension, unspecified (5) Chest pain Qualifiers: Qualified Code(s): R07.9 - Chest pain, unspecified
[2017-12-18 04:44] LABS: Basophils % 0.5 %; Eosinophils # 0.3 K/mcL (0.0-0.6); Eosinophils % 3.4 %; Hematocrit 41.7 % (35.3-44.9); Hemoglobin 13.9 g/dL (11.5-15.4); Immature Granulocytes % 0.3 % (0-4); Lymphocytes # 2.4 K/mcL (0.6-4.6); Lymphocytes % 32.3 %; Mean Corpuscular HGB Conc 33.3 g/dL (31.6-35.5); Mean Corpuscular Hemoglobin 28.3 pg (28.0-33.3); Mean Corpuscular Volume 84.9 fL (83.0-100.0); Mean Platelet Volume 10.1 fL (9.4-12.4); Monocytes # 0.6 K/mcL (0.0-1.3); Monocytes % 8.4 %; Neutrophils # 4.1 K/mcL (1.6-8.9); Platelet Count 335 K/mcL (140-400); Red Blood Count 4.91 M/mcL (3.82-4.97); Segmented Neutrophils % 55.1 %
[2017-12-18 05:02] LABS: BUN/Creatinine Ratio 21 (6-26); Blood Urea Nitrogen 13 mg/dL (8-23); Calcium 9.7 mg/dL (8.6-10.3); Carbon Dioxide 25 mEq/L (23-29); Chloride 105 mEq/L (98-107); Glucose 179 mg/dL (70-105); Osmolality,Calculated 295 (280-300); Potassium 3.9 mEq/L (3.5-5.1); Sodium 140 mEq/L (136-145); eGFR For Non-African Americans > 60 (> 60)
[2017-12-18] MEDS: *HR* Heparin 5,000 UNIT/ML VIAL SQ SCH ×2 (05:33→18:31)
[2017-12-18] MEDS: Insulin LISPRO 300 UNITS/3 ML VIAL SQ SCH ×4 (08:19→20:53)
[2017-12-18] MEDS: Metoprolol XL (24 HR) Succ 50 MG TAB.ER.24H PO SCH ×2 (09:20→20:37)
[2017-12-18] MEDS: Furosemide 40 MG/4 ML VIAL IVP SCH ×2 (09:20→20:37)
[2017-12-18] MEDS: Lisinopril 20 MG TABLET PO SCH (09:21)
[2017-12-18] MEDS: Isosorbide MONOnitrate (24 HR) 30 MG TAB.ER.24H PO SCH (09:21)
[2017-12-18] MEDS: Aspirin 81 MG TAB.CHEW PO SCH (09:21)
[2017-12-18] MEDS: hydroCHLOROthiazide 25 MG TABLET PO SCH (09:21)
[2017-12-18] MEDS: Fluticasone Propionate Nasal 50 MCG/SPRAY BOTTLE NS SCH (09:25)
--- NOTE | 2017-12-18 09:39 | Internal Med Progress Note ---
Hospitalist Progress Note - Encounter Date of Encounter: 12/18/17 Time of Encounter: 11:00 - Subjective Interval History: No acute events. Patient complains of being sweaty this AM. She states shortness of breath is improved, and her chest pain has resolved. She denies palpitations, n/v, diarrhea, numbness/tingling. Edema has improved. - Exam Vitals: Temp Pulse Resp BP Pulse Ox 98.4 F 75 19 129/65 95 12/18/17 06:41 12/18/17 06:41 12/18/17 06:41 12/18/17 06:41 12/18/17 05:00 Exam: General: Alert and oriented Skin:Normal color, no rash, no lesions. HEENT:EOM, pupils equal, round and reactive. Cardiovascular:Normal S1 & S2, no rubs, murmurs or gallops. No JVD. Pulse regular. Lungs: course rales bilaterally throughout Abdomen:Soft, non-tender, no rigidity. Extremities: trace bipedal pitting edema, improved since yesterday, was 1+ Neurological:Normal cognition and motor skills. - Assessment and Plan (1) Chest pain Current Visit: Yes Status: Acute Assessment and Plan: Patient reports atypical chest pain in the setting of elevated blood pressure with EKG changes. Initial troponin was negative. Patient has a history of hypertension and diabetes. Looking back at previous admissions, patient underwent left heart catheterization in 2016 with findings of minimal atherosclerotic coronary artery disease and normal left ventricular end diastolic pressure. ECG on admission was comparable to baseline and has findings consistent with LVH. Echocardiogram done shows EF 65-70%, moderate pulmonary hypertension, LVH. Troponin negative x3 Chest pain resolved. Cardiology evaluated patient and based on presentation, no further workup is n ecessary. (2) Syncope and collapse Current Visit: Yes Status: Acute Assessment and Plan: Syncopal episode prior to receiving flu shot. However given patient's hypertension. CT scan of the head was negative. No focal neurological deficits. Possibly cardiogenic. Echocardiogram did not show any findings to suggest cardiac arrhythmias as cause. Most likely vasovagal. (3) Acute decompensated heart failure Current Visit: Yes Status: Acute Assessment and Plan: Likely from medication non-compliance, and possibly poor diet. Patient admits to not taking care of herself with lifestyle. Home medications resumed. Echocardiogram shows LVEF 65-70%, LVH, moderate pulmonary hypertension. Patient having -3.6 L output so far with IV Lasix. Continue Lasix and fluid restriction diet. (4) Hypertensive urgency Current Visit: Yes Status: Acute Assessment and Plan: Hypertensive urgency in the setting of medication noncompliance. She was placed on a nitro drip on admission. This was discontinued and she is back on her home medications. BP now within normal limits. Clonidine was discontinued and lisinopril was increased to 40 mg daily (hospital substitution for her benzapril at home). (5) Diabetes Current Visit: No Status: Chronic Assessment and Plan: Continue diabetic diet and insulin sliding scale. (6) Hyperlipidemia Current Visit: No Status: Chronic Assessment and Plan: Continue Crestor - Time Spent with Patient Total time spent is greater than 50% in coordination of care (as documented) at patient's floor/unit and/or counseling patient: Internal Medicine: Result - Labs CBC & Chem 7: 12/18/17 03:26 12/18/17 03:26 Labs: Short CBC 12/18/17 Range/Units 03:26 WBC 7.4 (4.3-11.1) K/mcL Hgb 13.9 (11.5-15.4) g/dL Hct 41.7 (35.3-44.9) % Plt Count 335 (140-400) K/mcL Neutrophils # 4.1 (1.6-8.9) K/mcL BMP 12/18/17 03:26 Sodium 140 Potassium 3.9 Chloride 105 Carbon Dioxide 25 BUN 13 Creatinine 0.61 Glucose 179 H Calcium 9.7 - ABG Interpretation ABG results: PT/INR, D-dimer PT 12.5 Seconds (9.4-12.1) H 12/16/17 23:58 - Impressions Impressions Echocardiogram 12/17/17 13:00 Impressions: LVEF 65-70%. Moderate concentric left ventricular hypertrophy. Mild left ventricular diastolic dysfunction. Mildly dilated left atrium. Normal right ventricular structure and function. Mild mitral regurgitation. Mild-moderate tricuspid regurgitation. Consult Discharge Plan - Plan Referrals: Livan Ricardo DO [Primary Care Provider] - (1) Chest pain Qualifiers: Qualified Code(s): R07.9 - Chest pain, unspecified (5) Diabetes Qualifiers: Diabetes mellitus type: type 2 Diabetes mellitus correction insulin use: without medical terminologist use Diabetes mellitus complication status: with unspecified complications Qualified Code(s): E11.8 - Type 2 diabetes mellitus with unspecified complications (6) Hyperlipidemia Qualifiers: Hyperlipidemia type: unspecified Qualified Code(s): E78.5 - Hyperlipidemia, unspecified
--- NOTE | 2017-12-18 23:10 | Electrocardiograph Report ---
[place] [id number] Test Date: 2017-12-16 Pat Name: Nilam Clark Department: EXAM15 Room: 2NE25 Gender: F [employer] Adviser: : 1945 Requested By: Eugene Newton Order Number: [id number] Reading MD: Emily Angulo Measurements Intervals Anderson Rate: 115 P: 51 ME: 125 QRS: 21 QRSD: 96 T: 261 QT: 323 QTc: 447 Interpretive Statements Sinus tachycardia Ventricular premature complex Probable left atrial enlargement LVH with secondary repolarization abnormality Electronically Signed On 12-18-2017 23:09:03 EDT by Emily Angulo
[2017-12-19 03:38] LABS: BUN/Creatinine Ratio 37 (6-26); Blood Urea Nitrogen 25 mg/dL (8-23); Calcium 9.7 mg/dL (8.6-10.3); Carbon Dioxide 24 mEq/L (23-29); Chloride 102 mEq/L (98-107); Glucose 218 mg/dL (70-105); Osmolality,Calculated 297 (280-300); Potassium 3.6 mEq/L (3.5-5.1); Sodium 138 mEq/L (136-145); eGFR For Non-African Americans > 60 (> 60)
[2017-12-19 03:53] LABS: Bilirubin,Urine Negative (Negative); Blood,Urine Negative (Negative); Clarity,Urine Clear (Clear); Color,Urine Yellow (Yellow); Glucose,Urine (UA) Normal (Normal); Ketones,Urine Negative (Negative); Leukocyte Esterase,Urine Negative (Negative); Nitrite,Urine Negative (Negative); Protein,Urine Negative (Neg-Trace); Specific Gravity,Urine 1.017 (1.010-1.025); Urobilinogen,Urine Normal (Normal)
[2017-12-19] MEDS: *HR* Heparin 5,000 UNIT/ML VIAL SQ SCH ×2 (05:32→18:57)
[2017-12-19] MEDS: Insulin LISPRO 300 UNITS/3 ML VIAL SQ SCH ×4 (08:58→21:42)
[2017-12-19] MEDS ORDERED: Ondansetron 4 MG/2 ML VIAL IVP PRN (09:08)
[2017-12-19] MEDS ORDERED: *HR* Promethazine 25 MG/ML VIAL IVP PRN (09:51)
--- NOTE | 2017-12-19 09:51 | Internal Med Progress Note ---
Hospitalist Progress Note - Encounter Date of Encounter: 12/19/17 Time of Encounter: 09:49 - Subjective Interval History: No acute events. Complains of nausea and vomiting today. Patient was dry heaving on exam at bedside. Still has some shortness of breath, but much better over past 2 days. - Exam Vitals: Temp Pulse Resp BP Pulse Ox 98.4 F 68 19 148/87 96 12/19/17 07:38 12/19/17 07:38 12/19/17 07:38 12/19/17 07:38 12/19/17 07:38 Exam: General: Alert and oriented Skin:Normal color, no rash, no lesions. HEENT:EOM, pupils equal, round and reactive. Cardiovascular:Normal S1 & S2, no rubs, murmurs or gallops. No JVD. Pulse regular. Lungs:Normal breath sounds, no wheezes or crackles. Abdomen:Soft, non-tender, no rigidity. Extremities:No deformity, no edema or tenderness, no joint swelling or clubbing. Neurological:Normal cognition and motor skills. Pulses:Carotid and radial pulses normal +2. Rest of the physical exam is non contributory - Assessment and Plan (1) Chest pain Current Visit: Yes Status: Acute Assessment and Plan: Patient reports atypical chest pain in the setting of elevated blood pressure with EKG changes. Initial troponin was negative. Patient has a history of hypertension and diabetes. Looking back at previous admissions, patient underwent left heart catheterization in 2016 with findings of minimal atherosc lerotic coronary artery disease and normal left ventricular end diastolic pressure. ECG on admission was comparable to baseline and has findings consistent with LVH. Echocardiogram done shows EF 65-70%, moderate pulmonary hypertension, LVH. Troponin negative x3 Chest pain resolved. Cardiology evaluated patient and based on presentation, no further workup is necessary. (2) Hypertensive urgency Current Visit: Yes Status: Acute Assessment and Plan: Secondary to med non-compliance. Placed no a nitro drip on admission, then was discontinued and BP has remained within normal limits after home medications were resumed. (3) Hyperlipidemia Current Visit: No Status: Chronic Assessment and Plan: Continue Crestor (4) Syncope and collapse Current Visit: Yes Status: Acute Assessment and Plan: Syncopal episode prior to receiving flu shot. However given patient's hypertension. CT scan of the head was negative. No focal neurological deficits. Possibly cardiogenic but echocardiogram did not show any findings to suggest cardiac arrhythmias as cause. Most likely vasovagal. (5) Nausea & vomiting Current Visit: Yes Status: Acute Assessment and Plan: Patient had a bout of dry heaving but she ate her breakfast without issue. Her appetite is good and no emesis noted. Obtain CT scan. Eloy love (6) Diabetes Current Visit: No Status: Chronic Assessment and Plan: Continue diabetic diet and insulin sliding scale. - Time Spent with Patient Total time spent is greater than 50% in coordination of care (as documented) at patient's floor/unit and/or counseling patient: Internal Medicine: Result - Labs CBC & Chem 7: 12/19/17 13:20 12/19/17 13:20 Labs: BMP 12/19/17 02:49 Sodium 138 Potassium 3.6 Chloride 102 Carbon Dioxide 24 BUN 25 H Creatinine 0.68 Glucose 218 H Calcium 9.7 Urine 12/19/17 Range/Units 03:44 Urine Color Yellow (Yellow) Urine Clarity Clear (Clear) Urine pH 6.0 (5.0-8.0) pH Units Ur Specific [place] 1.017 (1.010-1.025) Urine Protein Negative (Neg-Trace) mg/dL Urine Glucose (UA) Normal (Normal) mg/dL - ABG Interpretation ABG results: PT/INR, D-dimer PT 12.5 Seconds (9.4-12.1) H 12/16/17 23:58 Consult Discharge Plan - Plan Referrals: Livan Ricardo DO [Primary Care Provider] - (1) Chest pain Qualifiers: Qualified Code(s): R07.9 - Chest pain, unspecified (3) Hyperlipidemia Qualifiers: Hyperlipidemia type: unspecified Qualified Code(s): E78.5 - Hyperlipidemia, unspecified (5) Nausea & vomiting Qualifiers: Vomiting type: unspecified Vomiting Intractability: unspecified Qualified Code(s): R11.2 - Nausea with vomiting, unspecified (6) Diabetes Qualifiers: Diabetes mellitus type: type 2 Diabetes mellitus fpc insulin use: without fpc use Diabetes mellitus complication status: with unspecified complications Qualified Code(s): E11.8 - Type 2 diabetes mellitus with unspecified complications
[2017-12-19] MEDS: Lisinopril 20 MG TABLET PO SCH (11:51)
[2017-12-19] MEDS: Isosorbide MONOnitrate (24 HR) 30 MG TAB.ER.24H PO SCH (11:51)
[2017-12-19] MEDS: Aspirin 81 MG TAB.CHEW PO SCH (11:51)
[2017-12-19] MEDS: hydroCHLOROthiazide 25 MG TABLET PO SCH ×2 (11:51→18:52)
[2017-12-19] MEDS: Metoprolol XL (24 HR) Succ 50 MG TAB.ER.24H PO SCH ×2 (11:51→18:51)
[2017-12-19] MEDS: Fluticasone Propionate Nasal 50 MCG/SPRAY BOTTLE NS SCH (11:51)
--- NOTE | 2017-12-19 13:26 | Event Note ---
Date of Encounter: 12/19/17 Time of Encounter: 13:22 I was paged about 11:57 that patient complaints of acute onset of facial numbness and weakness. I examined patient and there appeared to be no neuro deficits. Due to high risk with DM, and uncontrolled HTN a stroke alert was called. Patient SBP ranged from 160-180 mmHg at this time after she refused morning medications. A stat CT head without contrast done and was negative. [facility] physican evaluated patient, no TPA was indicated. She will have remained of a CVA workup done here, no transfer to [facility] is needed. - Neurology consulted - Continue NIH scale monitoring - MRI/MRA head/neck - Cycle troponins, check EKG, stat labs.
[2017-12-19 13:29] LABS: Basophils % 0.4 %; Eosinophils # 0.3 K/mcL (0.0-0.6); Eosinophils % 3.2 %; Hematocrit 42.8 % (35.3-44.9); Hemoglobin 14.4 g/dL (11.5-15.4); Immature Granulocytes % 0.3 % (0-4); Lymphocytes % 25.6 %; Mean Corpuscular HGB Conc 33.6 g/dL (31.6-35.5); Mean Corpuscular Hemoglobin 28.1 pg (28.0-33.3); Mean Corpuscular Volume 83.6 fL (83.0-100.0); Mean Platelet Volume 9.3 fL (9.4-12.4); Monocytes # 0.7 K/mcL (0.0-1.3); Monocytes % 9.4 %; Neutrophils # 4.8 K/mcL (1.6-8.9); Platelet Count 307 K/mcL (140-400); Red Blood Count 5.12 M/mcL (3.82-4.97); Red Cell Distribution Width 13.6 % (11.5-14.5); Segmented Neutrophils % 61.1 %
[2017-12-19 13:37] LABS: INR 1.1; Prothrombin Time 12.6 Seconds (9.4-12.1)
[2017-12-19 13:39] LABS: Activated Partial Thrombo Time 30.9 Seconds (26.0-36.0)
[2017-12-19 13:50] LABS: BUN/Creatinine Ratio 34 (6-26); Blood Urea Nitrogen 18 mg/dL (8-23); Calcium 9.8 mg/dL (8.6-10.3); Carbon Dioxide 22 mEq/L (23-29); Chloride 104 mEq/L (98-107); Glucose 149 mg/dL (70-105); Osmolality,Calculated 287 (280-300); Potassium 3.7 mEq/L (3.5-5.1); Sodium 136 mEq/L (136-145); eGFR For Non-African Americans > 60 (> 60)
[2017-12-19 13:51] LABS: Troponin I < 0.03 ng/mL (< 0.04)
--- NOTE | 2017-12-19 15:29 | Neurology - Consult Note ---
Date of Encounter: 12/19/17 Time of Encounter: 15:22 Assessment and Plan (1) Paresthesias with subjective weakness Current Visit: Yes Status: Acute Since she definitely does have stroke risk factors I do agree with obtaining an MRI scan of the brain to further rule out acute cerebral infarct. Otherwise I would recommend aggressive management of her stroke risk factors. Further recog MRI results. History of Present Illness HPI: Ms. Clark is a 72 year old female who is seen for neurologic consultation second latoya to an episode of transient facial numbness with associated paresthesias of the right upper and right lower extremity. She was admitted on 12/16/2017 after being assessed by her primary care provider in the office and noted to have a blood pressure of greater than 200 systolic. Apparently she had a syncopal episode. She has a prior history of hyperlipidemia hypertension diabetes as well as obesity. Earlier today she had complaints of facial numbness After earlier declining her morning meds. She describes facial numbness around the mouth which then radiated into the right upper and right lower extremities. The numbness persisted for several hours and is now resolved. She denied any weakness of the right upper right lower extremity, denied visual changes or headache. A stat stroke alert was called she was assessed by the [facility] stroke team on the telemonitor. She was felt not to be a candidate for TPA. MRI/MRA brain are pending. Carotid Doppler and echocardiogram were both negative. Pt. is now alert oriented and lucid to give her own medical history. Past Med Surg Social Fam HX - Past Medical History Medical history: arthritis, cardiomyopathy, diabetes, GERD, hyperlipidemia, hypertension, osteoporosis, renal disease, venous stasis, valvular heart disease, other Additional medical history: irregular heartbeat Psychiatric history: no psych history - Past Surgical History Surgical History: breast surgery (Right lumpectomy.), hysterectomy, other (Bladder suspension.) Additional surgical history: bladder suspension - Social History Smoking Status: Never smoker Smokeless Tobacco Status: No Alcohol use: none Drug use: none - Family History Mother Hx Family Cardiac Disorders: Yes Father Hx Family Cardiac Disorders: Yes Medications and Allergies Aspirin 81 mg PO DAILY 07/18/15 [History] Benazepril HCl [Lotensin] 20 mg PO DAILY 07/18/15 [History] Docusate [Colace] 100 mg PO DAILY 07/18/15 [History] Fluticasone Propionate Nasal [Flonase] 2 spr NS DAILY 07/18/15 [History] Hydrochlorothiazide [Microzide] 12.5 mg PO DAILY 07/18/15 [History] Isosorbide MONOnitrate (24 HR) [Imdur] 30 mg PO DAILY 07/18/15 [History] Metformin HCl [Glucophage] 1,000 mg PO BID 07/18/15 [History] Rosuvastatin [Crestor] 20 mg PO DAILY 07/18/15 [History] Tolterodine Tartrate [Detrol] 2 mg PO TID 07/18/15 [History] cloNIDine HCl [CloNIDine HCl] 0.1 mg PO TID 07/18/15 [History] Metoprolol Succinate [Toprol Xl] 100 mg PO BID 12/19/17 [History] Allergy/AdvReac Type Severity Reaction Status Date / Time nitrofurantoin AdvReac Hives Verified 07/18/15 17:04 [From Macrodantin] All Systems: The remainder of the systems were reviewed and are negative Review of Systems: The balance of the systems review is negative. 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, quadriceps, tibialis Anterior, toe extension (EHL), plantarflexion Detailed sensory examination: other (paresthesias of the right arm.) Reflexes: Biceps: 1+, Triceps: 1+, Brachioradialis: 1+, Patella: 1+, Achilles: 0 Mental Status Examination: awake, alert, oriented to person, oriented to place, oriented to time, follows commands appropriately, answers questions approp riately, no agnosia, no aphasia, no aproxia Cranial nerve examination: PERRL, EOMI, visual gonzalez intact, mastication intact, no facial asymmetry is present, no dysarthria, hearing is intact symmetrically Results - Laboratory Findings CBC and BMP: 12/19/17 13:20 12/19/17 13:20 Abnormal lab findings: Abnormal lab results RBC 5.12 M/mcL (3.82-4.97) H 12/19/17 13:20 MPV 9.3 fL (9.4-12.4) L 12/19/17 13:20 PT 12.6 Seconds (9.4-12.1) H 12/19/17 13:20 Heparin Anti-Xa, Unfract 0.96 IU/mL (0.30-0.70) H 12/17/17 06:43 Carbon Dioxide 22 mEq/L (23-29) L 12/19/17 13:20 Creatinine 0.53 mg/dL (0.60-1.20) L 12/19/17 13:20 BUN/Creatinine Ratio 34 (6-26) H 12/19/17 13:20 Glucose 149 mg/dL (70-105) H 12/19/17 13:20 POC Glucose 243 mg/dL (70-99) H 12/18/17 20:51 Phosphorus 2.6 mg/dL (2.7-4.5) L 12/16/17 17:52 AST 12 Units/L (13-39) L 12/17/17 06:43 Serum Total Protein 6.0 g/dL (6.4-8.9) L 12/17/17 06:43 Urine Microscopic WBC 3-5 per hpf (0-3) H 12/16/17 19:03 Ur Squamous Epith Cells Many per lpf (None-Few) H 12/16/17 19:03 Consult Discharge Plan - Plan Referrals: Livan Ricardo DO [Primary Care Provider] -
[2017-12-19] MEDS ORDERED: Furosemide 40 MG/4 ML VIAL IVP ONE (18:00)
[2017-12-20] MEDS ORDERED: Melatonin 3 MG TABLET PO PRN (01:29)
[2017-12-20 04:32] LABS: BUN/Creatinine Ratio 38 (6-26); Blood Urea Nitrogen 25 mg/dL (8-23); Carbon Dioxide 26 mEq/L (23-29); Chloride 100 mEq/L (98-107); Glucose 199 mg/dL (70-105); Osmolality,Calculated 292 (280-300); Potassium 3.9 mEq/L (3.5-5.1); Sodium 136 mEq/L (136-145); eGFR For Non-African Americans > 60 (> 60)
[2017-12-20 05:57] VITALS: BP 123/65
[2017-12-20] MEDS: *HR* Heparin 5,000 UNIT/ML VIAL SQ SCH (06:00)
--- NOTE | 2017-12-20 08:17 | Neurology Progress Note ---
Date of Encounter: 12/20/17 Time of Encounter: 08:15 Assessment and Plan (1) Paresthesias with subjective weakness Current Visit: Yes Status: Acute No evidence of acute cerebral infarct. Doubtful of transient ischemia. I suspect that this event was most likely due to hyperventilation or anxiety. I will reevaluate her at your request. Subjective Interval history: The chart was reviewed, the patient was seen and examined. She is currently sitting up in her bed eating breakfast without difficulty. She reports no further episodes of facial numbness or paresthesias overnight. MRI scan of the brain revealed no evidence of acute diffusion abnormality. No evidence of acute infarct. MRA of the neck revealed no evidence of carotid artery stenosis. Patient's blood pressure is much better controlled. She is back to her normal neuro status. 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, hip flexors, tibialis Anterior, quadriceps, toe extension (EHL), plantarflexion Motor examination - left side: 5/5: deltoids, biceps, triceps, hip flexors, group contract analyst, quadriceps, tibialis Anterior, toe extension (EHL), plantarflexion Sensation intact: Present: other (paresthesias of the right arm.) Mental Status Examination: Present: awake, alert, oriented to person, oriented to place, oriented to time, follows commands appropriately, answers questions appropriately, no agnosia, no aphasia, no aproxia Cranial nerve examination: Present: PERRL, EOMI, visual gonzalez intact, mastication intact, no facial asymmetry is present, no dysarthria, hearing is intact symmetrically Results - Laboratory Findings CBC and BMP: 12/19/17 13:20 12/20/17 03:36 Abnormal lab findings: Abnormal lab results RBC 5.12 M/mcL (3.82-4.97) H 12/19/17 13:20 MPV 9.3 fL (9.4-12.4) L 12/19/17 13:20 PT 12.6 Seconds (9.4-12.1) H 12/19/17 13:20 Heparin Anti-Xa, Unfract 0.96 IU/mL (0.30-0.70) H 12/17/17 06:43 BUN 25 mg/dL (8-23) H 12/20/17 03:36 BUN/Creatinine Ratio 38 (6-26) H 12/20/17 03:36 Glucose 199 mg/dL (70-105) H 12/20/17 03:36 POC Glucose 203 mg/dL (70-99) H 12/19/17 19:56 Phosphorus 2.6 mg/dL (2.7-4.5) L 12/16/17 17:52 AST 12 Units/L (13-39) L 12/17/17 06:43 Serum Total Protein 6.0 g/dL (6.4-8.9) L 12/17/17 06:43 Urine Microscopic WBC 3-5 per hpf (0-3) H 12/16/17 19:03 Ur Squamous Epith Cells Many per lpf (None-Few) H 12/16/17 19:03 Consult Discharge Plan - Plan Referrals: Lvian Ricardo DO [Primary Care Provider] -
[2017-12-20] MEDS: Metoprolol XL (24 HR) Succ 50 MG TAB.ER.24H PO SCH (08:33)
[2017-12-20] MEDS: Lisinopril 20 MG TABLET PO SCH (08:33)
[2017-12-20] MEDS: Aspirin 81 MG TAB.CHEW PO SCH (08:33)
[2017-12-20] MEDS: hydroCHLOROthiazide 25 MG TABLET PO SCH (08:33)
[2017-12-20] MEDS: Fluticasone Propionate Nasal 50 MCG/SPRAY BOTTLE NS SCH (08:34)
[2017-12-20] MEDS: Isosorbide MONOnitrate (24 HR) 30 MG TAB.ER.24H PO SCH (08:34)
[2017-12-20] MEDS: Insulin LISPRO 300 UNITS/3 ML VIAL SQ SCH (08:45)
[2017-12-20 09:32] LABS: Magnesium 1.7 mg/dL (1.6-2.6)
[2017-12-20] MEDS ORDERED: Furosemide 40 MG/4 ML VIAL IVP ONE (09:52)
[2017-12-20 09:58] LABS: Phosphorous 3.6 mg/dL (2.7-4.5)
--- NOTE | 2017-12-20 10:06 | Discharge Summary ---
- NOTES TO OUTPATIENT PROVIDER Notes to Outpatient Provider: Follow-up is being coordinated with primary care physician in 3-5 days. Repeat BMP discussed with patient for 3 days. Importance of compliance discussed in-depth. Refills of medications provided. Lasix for additional 5 days. She was instructed that the medications on discharge is her new regimine until seen by primary care physician. We discussed the risks of medication non-compliance, including renal failure, GA, stroke, . Orders not resulted at time of discharge: Pending orders 12/19/17 12:57 EKG [ECG 12 lead ECG] [ECG] Stat Date of Encounter: 12/20/17 Time of Encounter: 10:03 - Discharge Diagnosis (1) Hypertensive urgency Priority: Primary Status: Acute (2) Chest pain Priority: Secondary Status: Acute Qualifiers: Qualified Code(s): R07.9 - Chest pain, unspecified (3) Acute decompensated heart failure Priority: Secondary Status: Acute Assessment and Plan: Likely from medication non-compliance, and possibly poor diet. Echocardiogram shows LVEF 65-70%, LVH, moderate pulmonary hypertension. Started on IV Lasix 40 mg BID, Did not have any episodes of hypoxia, she remained hemodynamically stable on room air. Will be discharged with 40 mg PO Lasix daily with follow-up BMP. (4) Syncope and collapse Priority: Secondary Status: Acute (5) Diabetes Priority: Secondary Status: Chronic Qualifiers: Diabetes mellitus type: type 2 Diabetes mellitus assisted insulin use: without assisted use Diabetes mellitus complication status: with unspecified complications Qualified Code(s): E11.8 - Type 2 diabetes mellitus with unspecified complications (6) Hyperlipidemia Priority: Secondary Status: Chronic Qualifiers: Hyperlipidemia type: unspecified Qualified Code(s): E78.5 - Hyperlipidemia, unspecified Hospital course: Ms. Clark is a 72 year female with history of DM 2, HTN, HLD, GERD, obesity, and nonobstructive CAD on catheterization June 2015. She presented from her PCP of tim with elevated blood pressure and syncope after she ran out of medications a few days ago. She had SBP in 200 range with headache, chest pain, and nausea. Chest pain was atypical, noted left anterior chest wall, and mid epigastric and reproducible with palpation. A CT scan of head on admission was unremarkable. EKG showed ST depressions and T-wave inversions that were unchanged from prior studies. Given high risk factors and EKG on presentation she was started on heparin drip and Cardiology was consulted. Troponin cycled and were negative. EKG was relatively similar to baseline with atypical presentation and chronic cough. After an abnormal stress test in 2015, she LHC with non-obstructive findings Therefore heparin drip and nitro drip were discontinued. Cardiology signed off after workup unremarkable. Patient was resumed on her home medication and BP was in normal limits afterwords. A chest x-ray showed mild pulmonary edema and she was diuresed with Lasix. Patient did have multiple complaints which did get worked up. She had acute right leg pain on admission prior to cardiopulm workup and venous duplex ruled out DVT. There were occasional episodes of nausea and vomiting, CT of abdomen/pelvis and CT headwas unremarkable. She had an episode of acute onset face/right-sided weakness, a stroke alert was called and no TPA was indicated. She had full stroke (and syncope) workup including MRI/MRA that was negative and Neurology saw patient and signed off. Patient was discharged hoome in stable condition. We discussed improtance of lifestyle compliance as well as medication compliance. We are arranging scheduled follow-up with PCP and a BMP in 3 days. She will be discharged with new prescriptions and reviewed these with patient. - Time Spent with Patient Total time spent providing and/or coordinating discharge services: - Discharge Medications Prescriptions: Aspirin 81 mg PO DAILY #30 tab.chew Benazepril HCl [Lotensin] 20 mg PO DAILY #30 tablet Docusate [Colace] 100 mg PO DAILY #30 capsule Hydrochlorothiazide [Microzide] 12.5 mg PO DAILY #30 capsule Isosorbide MONOnitrate (24 HR) [Imdur] 30 mg PO DAILY #30 tab.er.24h Metformin HCl [Glucophage] 1,000 mg PO BID #60 tablet Metoprolol Succinate [Toprol Xl] 100 mg PO BID #30 tab.er.24h Rosuvastatin [Crestor] 20 mg PO HS #30 tablet Home Medications: Fluticasone Propionate Nasal [Flonase] 2 spr NS DAILY 07/18/15 [History] Tolterodine Tartrate [Detrol] 2 mg PO TID 07/18/15 [History] Aspirin 81 mg PO DAILY #30 tab.chew 12/20/17 [Rx] Benazepril HCl [Lotensin] 20 mg PO DAILY #30 tablet 12/20/17 [Rx] Docusate [Colace] 100 mg PO DAILY #30 capsule 12/20/17 [Rx] Furosemide [Lasix] 40 mg PO DAILY #5 tablet 12/20/17 [Rx] Hydrochlorothiazide [Microzide] 12.5 mg PO DAILY #30 capsule 12/20/17 [Rx] Isosorbide MONOnitrate (24 HR) [Imdur] 30 mg PO DAILY #30 tab.er.24h 12/20/17 [Rx] Metformin HCl [Glucophage] 1,000 mg PO BID #60 tablet 12/20/17 [Rx] Metoprolol Succinate [Toprol Xl] 100 mg PO BID #30 tab.er.24h 12/20/17 [Rx] Rosuvastatin [Crestor] 20 mg PO HS #30 tablet 12/20/17 [Rx] Allergies/Adverse Reactions: Allergy/AdvReac Type Severity Reaction Status Date / Time nitrofurantoin AdvReac Hives Verified 07/18/15 17:04 [From Macrodantin] Date of admission: 12/16/17 20:13 Primary care physician: Livan Ricardo Consults: 12/16/17 23:22 Consult to Cardiology [CONS] Routine Comment: Consulting Provider: Cardiology Delmy Reason for Consult: Chest Pain with abnormal EKG Call Completed: No 12/19/17 13:21 Consult to Neurology [CONS] Routine Consulting Provider: Neurology [facility] Reason for Consult: numbness, right sided weakness Call Completed: Yes Discharging clinician: Taylor Lloyd - Constitutional Vitals: Temp Pulse Resp BP Pulse Ox 97.8 F 74 18 123/65 97 12/20/17 05:42 12/20/17 05:42 12/20/17 05:42 12/20/17 05:42 12/20/17 04:00 General appearance: Present: A&O X 3, no acute distress Exam: . - Head Head exam: Present: atraumatic, normocephalic - Eye Eye exam: Present: PERRL, conjuntiva pink, sclera anicteric Pupils: Present: PERRL - Neck Neck exam general surgery: Present: supple, trachea midline. Absent: lymphadenopathy - Respiratory Respiratory exam: Absent: accessory muscle use, rhonchi, wheezes Additional comments: aeration of lung gonzalez now good. Fine rales and lung bases, improving in past two days. - Cardiovascular Cardiovascular exam: Present: RRR, +S1, +S2. Absent: diastolic murmur, gallop, rubs, systolic murmur - GI/Abdominal GI/Abdominal exam: Present: normal bowel sounds, soft, no peritoneal signs. Absent: distended, tenderness - Extremities Exam Extremities exam: Present: warm, radial pulses palpable and symmetrical. Absent: calf tenderness, cyanotic, pedal edema (Resolved, was 1+ bipedal two days ago.) - Neurological Exam Neurological exam: Present: CN II-XII intact, oriented X3, no focal deficits. Absent: pronater drift, facial droop, speech deficit - Skin Skin exam: Present: dry, intact - Patient Status Disposition: Home, Self-Care Condition: Good Functional capacity at discharge: independent ambulation Overall status at discharge: patient is progressing back to baseline - Discharge Instructions Follow Up With: Livan Ricardo DO [Primary Care Provider] - - Diet and Activity Activity: increase activity as tolerated Diet: diabetic diet, low fat, low cholesterol, low salt diet
--- NOTE | 2017-12-21 13:55 | Electrocardiograph Report ---
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
== END 2017-12-20 14:28 | disposition home or self-care (01) ==
LOC: EMEROOARM 17:27 → 2NENU 17:27 → SUATTDRO 20:13 → 2NENU 21:03
PROVIDERS: ADMIT Internal Medicine; ATTEND Student in an Organized Health Care Education/Training Program

== ENCOUNTER 2020-07-18 16:39 | Observation (INO) ==
[2020-07-18 17:36] LABS: Basophils % 0.4 %; Eosinophils # 0.1 K/mcL (0.0-0.6); Eosinophils % 0.7 %; Hematocrit 41.8 % (35.3-44.9); Hemoglobin 13.9 g/dL (11.5-15.4); Immature Granulocytes % 0.3 % (0-4); Lymphocytes # 1.5 K/mcL (0.6-4.6); Lymphocytes % 15.2 %; Mean Corpuscular HGB Conc 33.3 g/dL (31.6-35.5); Mean Corpuscular Hemoglobin 28.3 pg (28.0-33.3); Mean Platelet Volume 10.3 fL (9.4-12.4); Monocytes # 0.7 K/mcL (0.0-1.3); Monocytes % 6.7 %; Neutrophils # 7.6 K/mcL (1.6-8.9); Platelet Count 293 K/mcL (140-400); Red Blood Count 4.92 M/mcL (3.82-4.97); Red Cell Distribution Width 13.4 % (11.5-14.5); Segmented Neutrophils % 76.7 %; White Blood Count 9.9 K/mcL (4.3-11.1)
[2020-07-18 17:49] LABS: INR 1.1; Prothrombin Time 12.5 Seconds (9.4-12.1)
[2020-07-18 18:11] LABS: BUN/Creatinine Ratio 21 (6-26); Blood Urea Nitrogen 13 mg/dL (8-23); Calcium 9.4 mg/dL (8.6-10.3); Carbon Dioxide 20 mEq/L (23-29); Chloride 101 mEq/L (98-107); Glucose 475 mg/dL (70-105); Osmolality,Calculated 301 (280-300); Potassium 3.5 mEq/L (3.5-5.1); Sodium 135 mEq/L (136-145); Troponin I < 0.03 ng/mL (< 0.04); eGFR For African Americans > 60 (> 60); eGFR For Non-African Americans > 60 (> 60)
[2020-07-18] MEDS ORDERED: 0.9 % Sodium Chloride 500 ML IV ONE (18:31)
[2020-07-18] MEDS ORDERED: Insulin Human Regular 5 UNIT in 0.9 % Sodium Chloride 10 ML IV ONE (18:32)
[2020-07-18] MEDS ORDERED: D5% in Water 1,000 ML IVC PRN (20:51)
[2020-07-18] MEDS ORDERED: *HR* Dextrose 50 % in Water (Vial) 50 ML VIAL IVP PRN (20:51)
[2020-07-18] MEDS ORDERED: Dextrose Gel 15 GM/37.5 ML TUBE PO PRN ×2 (20:51)
[2020-07-18] MEDS ORDERED: Perflutren Lipid Microsphere 1.3 ML in 0.9 % Sodium Chloride 8.7 ML IVP PRN (20:58)
[2020-07-18] MEDS ORDERED: Nitroglycerin 0.4 MG TAB.SUBL SL PRN (20:59)
[2020-07-18] MEDS ORDERED: Insulin LISPRO 300 UNITS/3 ML VIAL SUBQ SCH (21:00)
[2020-07-18] MEDS ORDERED: Naloxone 0.4 MG/ML INJ IVP PRN (21:06)
[2020-07-18] MEDS ORDERED: Ondansetron 4 MG/2 ML VIAL IVP PRN (21:06)
[2020-07-18] MEDS ORDERED: Acetaminophen 325 MG TABLET PO PRN (21:06)
[2020-07-18] MEDS ORDERED: Morphine Sulfate 2 MG/ML SYRINGE IVP PRN (21:11)
[2020-07-18 21:57] LABS: Estimated Average Glucose 298 mg/dl
[2020-07-18] MEDS: Melatonin 3 MG TABLET PO PRN (22:22)
[2020-07-18] MEDS: Insulin DETEMIR 100 UNIT/ML X5UNITS SUBQ SCH (22:22)
[2020-07-18] MEDS ORDERED: *HR* Metoprolol 5 MG/5 ML VIAL IVP ONE (23:24)
[2020-07-18] MEDS ORDERED: *HR* Heparin 5,000 UNIT/ML VIAL IVP ONE (23:35)
[2020-07-18] MEDS ORDERED: *HR* Heparin 5,000 UNIT/ML VIAL IVP PRN ×2 (23:35)
[2020-07-18] MEDS ORDERED: Heparin 25,000UNIT/250ML 1/2NS 25,000 UNIT/250 ML IV.SOLN IVC SCH (23:45)
[2020-07-18] MEDS: DilTIAZem 50 MG/50 ML IV.SOLN IVC SCH (23:55)
[2020-07-19 00:26] LABS: Basophils % 0.3 %; Eosinophils # 0.1 K/mcL (0.0-0.6); Eosinophils % 0.9 %; Hematocrit 41.5 % (35.3-44.9); Hemoglobin 13.9 g/dL (11.5-15.4); Immature Granulocytes % 0.7 % (0-4); Lymphocytes # 2.1 K/mcL (0.6-4.6); Lymphocytes % 22.9 %; Mean Corpuscular HGB Conc 33.5 g/dL (31.6-35.5); Mean Corpuscular Hemoglobin 28.4 pg (28.0-33.3); Mean Corpuscular Volume 84.7 fL (83.0-100.0); Mean Platelet Volume 10.2 fL (9.4-12.4); Monocytes # 0.6 K/mcL (0.0-1.3); Neutrophils # 6.1 K/mcL (1.6-8.9); Platelet Count 312 K/mcL (140-400); Red Cell Distribution Width 13.4 % (11.5-14.5); Segmented Neutrophils % 68.2 %; White Blood Count 8.9 K/mcL (4.3-11.1)
[2020-07-19 00:36] LABS: BUN/Creatinine Ratio 19 (6-26); Blood Urea Nitrogen 12 mg/dL (8-23); Calcium 8.8 mg/dL (8.6-10.3); Carbon Dioxide 21 mEq/L (23-29); Chloride 103 mEq/L (98-107); Chol/HDL Ratio 4.7 (0-4.9); Cholesterol 254 mg/dL (< 200); Glucose 477 mg/dL (70-105); HDL Cholesterol 54 mg/dL (40-59); LDL Cholesterol,Calculated 141 mg/dL (< 100); Osmolality,Calculated 303 (280-300); Potassium 3.4 mEq/L (3.5-5.1); Sodium 136 mEq/L (136-145); Triglycerides 297 mg/dL (< 150); eGFR For African Americans > 60 (> 60); eGFR For Non-African Americans > 60 (> 60)
[2020-07-19 00:37] LABS: Troponin I < 0.03 ng/mL (< 0.04)
[2020-07-19] MEDS: DilTIAZem 50 MG/50 ML IV.SOLN IVC SCH ×3 (03:11→11:10)
[2020-07-19] MEDS ORDERED: *HR* Metoprolol 5 MG/5 ML VIAL IVP ONE (05:36)
[2020-07-19] MEDS ORDERED: Insulin LISPRO 300 UNITS/3 ML VIAL SUBQ SCH (07:30)
[2020-07-19] MEDS ORDERED: Potassium Chloride 20 MEQ, Lidocaine 1% 2 ML in 0.9 % Sodium Chloride 250 ML IVPB ONE (08:31)
[2020-07-19] MEDS ORDERED: Aspirin 81 MG TAB.CHEW PO SCH (09:00)
[2020-07-19] MEDS: Insulin LISPRO 300 UNITS/3 ML VIAL SUBQ SCH ×4 (09:14→19:54)
[2020-07-19] MEDS: Metoprolol 100 MG TABLET PO SCH ×2 (09:20→19:52)
[2020-07-19 10:28] LABS: BUN/Creatinine Ratio 21 (6-26); Blood Urea Nitrogen 11 mg/dL (8-23); Calcium 8.8 mg/dL (8.6-10.3); Carbon Dioxide 22 mEq/L (23-29); Chloride 106 mEq/L (98-107); Glucose 295 mg/dL (70-105); Magnesium 1.7 mg/dL (1.6-2.6); Osmolality,Calculated 294 (280-300); Potassium 3.9 mEq/L (3.5-5.1); Sodium 137 mEq/L (136-145); eGFR For African Americans > 60 (> 60); eGFR For Non-African Americans > 60 (> 60)
[2020-07-19 11:36] LABS: Thyroid Stimulating Hormone 0.612 mcIU/mL (0.340-5.600)
[2020-07-19] MEDS ORDERED: DilTIAZem CD (24hr) 120 MG CAP.ER.24H PO SCH (12:13)
[2020-07-19] MEDS: DilTIAZem CD (24hr) 120 MG CAP.ER.24H PO SCH (14:45)
[2020-07-19] MEDS: *HR* Rivaroxaban 10 MG TABLET PO SCH ×2 (14:45→14:51)
[2020-07-19] MEDS: Insulin DETEMIR 100 UNIT/ML X5UNITS SUBQ SCH (19:52)
[2020-07-19] MEDS: Melatonin 3 MG TABLET PO PRN (19:52)
[2020-07-20] MEDS: Insulin LISPRO 300 UNITS/3 ML VIAL SUBQ SCH ×6 (00:32→19:41)
[2020-07-20] MEDS: DilTIAZem CD (24hr) 120 MG CAP.ER.24H PO SCH (08:03)
[2020-07-20] MEDS: Metoprolol 100 MG TABLET PO SCH ×2 (08:03→19:41)
[2020-07-20] MEDS ORDERED: Isosorbide MONOnitrate (24 HR) 30 MG TAB.ER.24H PO SCH (09:00)
[2020-07-20] MEDS ORDERED: Isosorbide MONOnitrate (24 HR) 30 MG TAB.ER.24H PO ONE (11:19)
[2020-07-20] MEDS: *HR* Rivaroxaban 10 MG TABLET PO SCH (16:15)
[2020-07-20] MEDS: Insulin DETEMIR 100 UNIT/ML X5UNITS SUBQ SCH (19:41)
[2020-07-21] MEDS: Insulin LISPRO 300 UNITS/3 ML VIAL SUBQ SCH ×7 (00:13→23:59)
[2020-07-21] MEDS ORDERED: Regadenoson 0.4 MG/5 ML SYRINGE IVP ONE (06:32)
[2020-07-21] MEDS: DilTIAZem CD (24hr) 120 MG CAP.ER.24H PO SCH (09:15)
[2020-07-21] MEDS: Metoprolol 100 MG TABLET PO SCH ×2 (09:15→20:27)
[2020-07-21] MEDS: Isosorbide MONOnitrate (24 HR) 60 MG TAB.ER.24H PO SCH (09:15)
[2020-07-21] MEDS: *HR* Rivaroxaban 10 MG TABLET PO SCH (16:34)
[2020-07-21] MEDS: Melatonin 3 MG TABLET PO PRN (20:27)
[2020-07-21] MEDS: Insulin DETEMIR 100 UNIT/ML X5UNITS SUBQ SCH (20:28)
[2020-07-21 23:20] LABS: Hematocrit 37.6 % (35.3-44.9); Hemoglobin 12.5 g/dL (11.5-15.4); Mean Corpuscular HGB Conc 33.2 g/dL (31.6-35.5); Mean Corpuscular Hemoglobin 28.2 pg (28.0-33.3); Mean Corpuscular Volume 84.9 fL (83.0-100.0); Platelet Count 296 K/mcL (140-400); Red Blood Count 4.43 M/mcL (3.82-4.97); Red Cell Distribution Width 13.5 % (11.5-14.5); White Blood Count 9.5 K/mcL (4.3-11.1)
[2020-07-22] MEDS: Insulin LISPRO 300 UNITS/3 ML VIAL SUBQ SCH ×5 (05:15→21:04)
[2020-07-22] MEDS: DilTIAZem CD (24hr) 120 MG CAP.ER.24H PO SCH (08:04)
[2020-07-22] MEDS: Isosorbide MONOnitrate (24 HR) 60 MG TAB.ER.24H PO SCH (08:04)
[2020-07-22] MEDS: Metoprolol 100 MG TABLET PO SCH ×2 (08:04→21:03)
[2020-07-22 10:33] LABS: Basophils % 0.2 %; Eosinophils # 0.2 K/mcL (0.0-0.6); Eosinophils % 1.4 %; Hematocrit 39.2 % (35.3-44.9); Hemoglobin 12.8 g/dL (11.5-15.4); Immature Granulocytes % 0.3 % (0-4); Lymphocytes # 1.9 K/mcL (0.6-4.6); Mean Corpuscular HGB Conc 32.7 g/dL (31.6-35.5); Mean Corpuscular Hemoglobin 27.6 pg (28.0-33.3); Mean Corpuscular Volume 84.5 fL (83.0-100.0); Mean Platelet Volume 10.2 fL (9.4-12.4); Monocytes # 0.7 K/mcL (0.0-1.3); Monocytes % 6.7 %; Neutrophils # 7.7 K/mcL (1.6-8.9); Platelet Count 290 K/mcL (140-400); Red Blood Count 4.64 M/mcL (3.82-4.97); Red Cell Distribution Width 13.7 % (11.5-14.5); Segmented Neutrophils % 73.4 %; White Blood Count 10.5 K/mcL (4.3-11.1)
[2020-07-22 16:07] LABS: Basophils % 0.4 %; Eosinophils # 0.2 K/mcL (0.0-0.6); Eosinophils % 1.8 %; Hematocrit 40.4 % (35.3-44.9); Immature Granulocytes % 0.4 % (0-4); Lymphocytes % 19.8 %; Mean Corpuscular HGB Conc 32.2 g/dL (31.6-35.5); Mean Corpuscular Hemoglobin 27.7 pg (28.0-33.3); Mean Corpuscular Volume 86.1 fL (83.0-100.0); Mean Platelet Volume 9.8 fL (9.4-12.4); Monocytes # 0.7 K/mcL (0.0-1.3); Monocytes % 7.2 %; Neutrophils # 7.1 K/mcL (1.6-8.9); Platelet Count 302 K/mcL (140-400); Red Blood Count 4.69 M/mcL (3.82-4.97); Red Cell Distribution Width 13.6 % (11.5-14.5); Segmented Neutrophils % 70.4 %
[2020-07-22] MEDS: *HR* Rivaroxaban 10 MG TABLET PO SCH (18:20)
[2020-07-22] MEDS: Insulin DETEMIR 100 UNIT/ML X5UNITS SUBQ SCH (21:03)
[2020-07-22] MEDS: Melatonin 3 MG TABLET PO PRN (21:03)
[2020-07-22 22:45] LABS: Basophils # 0.1 K/mcL (0.0-0.2); Basophils % 0.5 %; Eosinophils # 0.2 K/mcL (0.0-0.6); Eosinophils % 1.8 %; Hematocrit 38.4 % (35.3-44.9); Hemoglobin 12.7 g/dL (11.5-15.4); Immature Granulocytes % 0.2 % (0-4); Lymphocytes # 2.4 K/mcL (0.6-4.6); Lymphocytes % 24.2 %; Mean Corpuscular HGB Conc 33.1 g/dL (31.6-35.5); Mean Corpuscular Hemoglobin 27.9 pg (28.0-33.3); Mean Corpuscular Volume 84.2 fL (83.0-100.0); Mean Platelet Volume 9.8 fL (9.4-12.4); Monocytes # 0.7 K/mcL (0.0-1.3); Monocytes % 6.9 %; Neutrophils # 6.5 K/mcL (1.6-8.9); Platelet Count 306 K/mcL (140-400); Red Blood Count 4.56 M/mcL (3.82-4.97); Red Cell Distribution Width 13.4 % (11.5-14.5); Segmented Neutrophils % 66.4 %; White Blood Count 9.9 K/mcL (4.3-11.1)
[2020-07-23] MEDS: Insulin LISPRO 300 UNITS/3 ML VIAL SUBQ SCH ×4 (01:20→12:00)
[2020-07-23] MEDS: DilTIAZem CD (24hr) 120 MG CAP.ER.24H PO SCH (08:00)
[2020-07-23] MEDS: Isosorbide MONOnitrate (24 HR) 60 MG TAB.ER.24H PO SCH (08:00)
[2020-07-23] MEDS: Metoprolol 100 MG TABLET PO SCH (08:00)
[2020-07-23 15:05] VITALS: BP 150/78
== END 2020-07-23 17:26 | disposition home health service (06) ==
LOC: 3BNU 16:39 → EMEROOARM 16:39 → SUATTDRO 19:17 → 3BNU 20:33
PROVIDERS: ADMIT Internal Medicine; ATTEND Registered Nurse

== ENCOUNTER 2021-07-17 22:40 | Inpatient (IN) ==
[2021-07-17] MEDS ORDERED: 0.9 % Sodium Chloride 1,000 ML IVC ONE ×2 (22:49→23:04)
[2021-07-17] MEDS ORDERED: Ondansetron 4 MG/2 ML VIAL IVP ONE (23:06)
[2021-07-17 23:37] LABS: Basophils % 0.2 %; Immature Granulocytes % 0.9 % (0-4); Nucleated Red Blood Cells 0.1 /100 WBC (0); Red Cell Distribution Width 13.5 % (11.5-14.5)
[2021-07-17 23:38] LABS: Basophils # 0.1 K/mcL (0.0-0.2); Hematocrit 45.6 % (35.3-44.9); Lymphocytes # 1.3 K/mcL (0.6-4.6); Lymphocytes % 4.5 %; Mean Corpuscular HGB Conc 32.9 g/dL (31.6-35.5); Mean Corpuscular Hemoglobin 28.4 pg (28.0-33.3); Mean Corpuscular Volume 86.2 fL (83.0-100.0); Mean Platelet Volume 10.2 fL (9.4-12.4); Monocytes # 1.1 K/mcL (0.0-1.3); Platelet Count 409 K/mcL (140-400); Red Blood Count 5.29 M/mcL (3.82-4.97); Segmented Neutrophils % 90.4 %; White Blood Count 27.9 K/mcL (4.3-11.1)
[2021-07-17 23:39] LABS: Neutrophils # 25.2 K/mcL (1.6-8.9)
[2021-07-17 23:49] LABS: INR 1.1; Prothrombin Time 12.5 Seconds (9.4-12.1)
[2021-07-17 23:50] LABS: Activated Partial Thrombo Time 27.6 Seconds (26.0-36.0)
[2021-07-17 23:54] LABS: Platelet Estimate Normal (Normal)
[2021-07-18] MEDS ORDERED: Metoprolol 100 MG TABLET PO STA (00:25)
[2021-07-18 00:29] LABS: Alanine Aminotransferase 13 Units/L (7-52); Albumin 4.1 g/dL (3.5-5.7); Albumin/Globulin Ratio 1.1 (1.1-2.2); Alkaline Phosphatase 109 Units/L (34-104); Aspartate Amino Transferase 14 Units/L (13-39); BUN/Creatinine Ratio 18 (6-26); Bilirubin,Indirect 0.4 mg/dL (0.0-1.0); Bilirubin,Total 0.4 mg/dL (0.3-1.0); Blood Urea Nitrogen 19 mg/dL (8-23); Calcium 9.5 mg/dL (8.6-10.3); Carbon Dioxide 16 mEq/L (23-29); Chloride 96 mEq/L (98-107); Creatine Kinase 188 Units/L (30-223); Ethanol < 10 mg/dL (Less than 10); Globulin 3.6 g/dL (2.4-3.5); Glucose 498 mg/dL (70-105); Osmolality,Calculated 302 (280-300); Potassium 3.7 mEq/L (3.5-5.1); Sodium 134 mEq/L (136-145); Total Protein 7.7 g/dL (6.4-8.9); Troponin I 0.33 ng/mL (< 0.04); eGFR For African Americans > 60 (> 60); eGFR For Non-African Americans 51 (> 60)
[2021-07-18] MEDS ORDERED: *HR* Metoprolol 5 MG/5 ML VIAL IVP ONE (00:42)
[2021-07-18 00:50] LABS: Amphetamine Screen,Urine Negative ng/mL (Cutoff=1000); Barbiturate Screen,Urine Negative ng/mL (Cutoff=200); Benzodiazepines Screen,Urine Negative ng/mL (Cutoff=200); Cannabinoid Screen,Urine Negative ng/mL (Cutoff = 50); Cocaine Screen,Urine Negative ng/mL (Cutoff= 300); Opiate Screen,Urine Negative ng/mL (Cutoff=300); Phencyclidine Screen,Urine Negative ng/mL (Cutoff=25)
[2021-07-18 00:51] LABS: Bacteria,Urine Few per hpf (None-Few); Bilirubin,Urine Negative (Negative); Blood,Urine Small (Negative); Clarity,Urine Clear (Clear); Color,Urine Light-Yellow (Yellow); Glucose,Urine (UA) >=1000 mg/dL (Normal); Ketones,Urine 60 mg/dL (Negative); Leukocyte Esterase,Urine Small (Negative); Nitrite,Urine Positive (Negative); PH,Urine 5.5 pH Units (5.0-8.0); Protein,Urine 30 mg/dL (Neg-Trace); Specific Gravity,Urine 1.025 (1.010-1.025); Squamous Epithelial Cell,Urine Few per hpf (None-Few); Urobilinogen,Urine Normal (Normal)
[2021-07-18] MEDS ORDERED: Azithromycin 250 MG TABLET PO ONE (00:51)
[2021-07-18] MEDS ORDERED: cefTRIAXone 1,000 MG in Water for inj. (sterile) 10 ML IVP ONE (00:51)
[2021-07-18] MEDS ORDERED: Insulin Human Regular 5 UNIT in 0.9 % Sodium Chloride 10 ML IV ONE (00:55)
[2021-07-18] MEDS ORDERED: Naloxone 0.4 MG/ML INJ IVP PRN (02:01)
[2021-07-18 02:06] LABS: VBG HCO3 18 mEq/L (21-27); VBG PCO2 38 mmHg (41-51); VBG PH 7.28 pH Units (7.32-7.42); VBG PO2 43 mmHg (25-50)
[2021-07-18] MEDS ORDERED: 0.9 % Sodium Chloride 500 ML IVC ONE ×2 (02:17→04:50)
[2021-07-18] MEDS: 0.9 % Sodium Chloride w KCl 20 MEQ/1,000 ML MLS IVC SCH ×5 (02:30→10:28)
[2021-07-18] MEDS ORDERED: D5% in 0.45% NACL w KCl 20 MEQ/1,000 ML MLS IVC PRN (02:35)
[2021-07-18] MEDS ORDERED: D5% in 0.45% NACL 1,000 ML IVC PRN (02:35)
[2021-07-18] MEDS ORDERED: *HR* Dextrose 50 % in Water (Syg) 50 ML SYRINGE IVP PRN (02:35)
[2021-07-18] MEDS ORDERED: *HR* Metoprolol 5 MG/5 ML VIAL IVP PRN (03:06)
[2021-07-18] MEDS ORDERED: *HR* Labetalol 20 MG/4 ML SYRINGE IVP PRN (03:06)
[2021-07-18] MEDS ORDERED: Potassium Chloride Elixir 20 MEQ/15 ML UDC PO ONE (03:15)
[2021-07-18 03:20] LABS: Creatine Kinase 352 Units/L (30-223)
[2021-07-18] MEDS ORDERED: Perflutren Lipid Microsphere 1.3 ML in 0.9 % Sodium Chloride 8.7 ML IVP PRN (03:32)
[2021-07-18 04:01] LABS: BUN/Creatinine Ratio 22 (6-26); Blood Urea Nitrogen 17 mg/dL (8-23); Calcium 8.9 mg/dL (8.6-10.3); Carbon Dioxide 13 mEq/L (23-29); Chloride 104 mEq/L (98-107); Glucose 358 mg/dL (70-105); Osmolality,Calculated 302 (280-300); Potassium 3.9 mEq/L (3.5-5.1); Sodium 138 mEq/L (136-145); eGFR For African Americans > 60 (> 60); eGFR For Non-African Americans > 60 (> 60)
[2021-07-18] MEDS ORDERED: *HR* Heparin 5,000 UNIT/ML VIAL IVP PRN ×2 (04:43)
[2021-07-18] MEDS ORDERED: Metoprolol XL (24 HR) Succ 25 MG TAB.ER.24H PO SCH (04:48)
[2021-07-18] MEDS ORDERED: Aspirin 325 MG TABLET PO ONE (04:48)
[2021-07-18 04:54] LABS: Acetaminophen < 10 mcg/mL (10-20); Phosphorous 3.1 mg/dL (2.7-4.5); Thyroid Stimulating Hormone 0.348 mcIU/mL (0.340-5.600)
[2021-07-18 04:55] LABS: Beta-Hydroxybutyric Acid > 2.00 mmol/L (0.02-0.27)
[2021-07-18] MEDS ORDERED: cefTRIAXone 1,000 MG in 0.9 % Sodium Chloride 10 ML IVP ONE (05:00)
[2021-07-18] MEDS ORDERED: Ondansetron 4 MG/2 ML VIAL IM ONE (05:13)
[2021-07-18] MEDS: Ondansetron 4 MG/2 ML VIAL IVP PRN ×2 (05:45→14:25)
[2021-07-18 05:53] LABS: Folate > 22.3 ng/mL (3.0-16.0); Vitamin B12 591 pg/mL (250-1100)
[2021-07-18 05:56] LABS: Estimated Average Glucose 301 mg/dl; Hemoglobin A1C 12.1 %
[2021-07-18] MEDS: Heparin 25,000UNIT/250ML 1/2NS 25,000 UNIT/250 ML IV.SOLN IVC SCH (06:05)
[2021-07-18 06:55] LABS: VBG HCO3 17 mEq/L (21-27); VBG PCO2 27 mmHg (41-51); VBG PH 7.41 pH Units (7.32-7.42); VBG PO2 90 mmHg (25-50)
[2021-07-18 06:58] LABS: Heparin anti-factor XA UFH 0.11 IU/mL (0.30-0.70)
[2021-07-18 06:59] LABS: INR 1.1; Prothrombin Time 12.6 Seconds (9.4-12.1)
[2021-07-18 07:20] LABS: Hematocrit 40.4 % (35.3-44.9); Hemoglobin 13.5 g/dL (11.5-15.4); Mean Corpuscular HGB Conc 33.4 g/dL (31.6-35.5); Mean Corpuscular Hemoglobin 28.1 pg (28.0-33.3); Mean Corpuscular Volume 84.2 fL (83.0-100.0); Mean Platelet Volume 9.7 fL (9.4-12.4); Platelet Count 334 K/mcL (140-400); Red Cell Distribution Width 13.7 % (11.5-14.5)
[2021-07-18 07:56] LABS: BUN/Creatinine Ratio 20 (6-26); Blood Urea Nitrogen 13 mg/dL (8-23); Calcium 8.5 mg/dL (8.6-10.3); Carbon Dioxide 18 mEq/L (23-29); Chloride 110 mEq/L (98-107); Glucose 212 mg/dL (70-105); Osmolality,Calculated 294 (280-300); Potassium 4.1 mEq/L (3.5-5.1); Sodium 139 mEq/L (136-145); eGFR For African Americans > 60 (> 60); eGFR For Non-African Americans > 60 (> 60)
[2021-07-18 07:57] LABS: Lymphocytes # 1.3 K/mcL (0.6-4.6); Monocytes # 0.4 K/mcL (0.0-1.3); Neutrophils # 20.2 K/mcL (1.6-8.9)
[2021-07-18 07:58] LABS: Platelet Estimate Normal (Normal)
[2021-07-18] MEDS ORDERED: cefTRIAXone 1,000 MG in 0.9 % Sodium Chloride 10 ML IVP SCH (09:00)
[2021-07-18] MEDS: Lactobacillus 1 EACH CAP.SPRINK PO SCH ×2 (09:16→19:53)
[2021-07-18] MEDS: Multivit/Ca/Min/Fe/FA 1 TAB TABLET PO SCH (09:16)
[2021-07-18] MEDS: Metoprolol XL (24 HR) Succ 50 MG TAB.ER.24H PO SCH (10:18)
[2021-07-18] MEDS ORDERED: Dextrose Gel 15 GM/37.5 ML TUBE PO PRN ×2 (11:23)
[2021-07-18] MEDS: Insulin LISPRO 300 UNITS/3 ML VIAL SUBQ SCH ×3 (11:44→19:31)
[2021-07-18] MEDS: Insulin DETEMIR 100 UNIT/ML X5UNITS SUBQ SCH (13:37)
[2021-07-18] MEDS ORDERED: Ipratropium/Albuterol Neb 3 ML IH PRN (17:23)
[2021-07-18] MEDS: *HR* Metoprolol 5 MG/5 ML VIAL IVP PRN (18:26)
[2021-07-18] MEDS: *HR* Labetalol 20 MG/4 ML SYRINGE IVP PRN (19:53)
[2021-07-19] MEDS: *HR* Labetalol 20 MG/4 ML SYRINGE IVP PRN ×2 (00:22→05:05)
[2021-07-19] MEDS: Heparin 25,000UNIT/250ML 1/2NS 25,000 UNIT/250 ML IV.SOLN IVC SCH ×2 (00:23→23:22)
[2021-07-19] MEDS: Multivit/Ca/Min/Fe/FA 1 TAB TABLET PO SCH (08:19)
[2021-07-19] MEDS: Insulin LISPRO 300 UNITS/3 ML VIAL SUBQ SCH ×4 (08:19→20:15)
[2021-07-19] MEDS: Lactobacillus 1 EACH CAP.SPRINK PO SCH ×2 (08:20→20:11)
[2021-07-19] MEDS: cefTRIAXone 2,000 MG in 0.9 % Sodium Chloride 20 ML IVP SCH (08:20)
[2021-07-19] MEDS: Aspirin 81 MG TAB.CHEW PO SCH (08:20)
[2021-07-19] MEDS: Metoprolol XL (24 HR) Succ 50 MG TAB.ER.24H PO SCH (08:20)
[2021-07-19 08:25] LABS: Basophils % 0.2 %; Hematocrit 43.4 % (35.3-44.9); Hemoglobin 14.4 g/dL (11.5-15.4); Immature Granulocytes % 0.4 % (0-4); Lymphocytes # 1.4 K/mcL (0.6-4.6); Lymphocytes % 5.7 %; Mean Corpuscular HGB Conc 33.2 g/dL (31.6-35.5); Mean Corpuscular Hemoglobin 28.1 pg (28.0-33.3); Mean Corpuscular Volume 84.8 fL (83.0-100.0); Mean Platelet Volume 10.5 fL (9.4-12.4); Monocytes # 1.8 K/mcL (0.0-1.3); Monocytes % 7.3 %; Neutrophils # 20.8 K/mcL (1.6-8.9); Nucleated Red Blood Cells 0.2 /100 WBC (0); Platelet Count 313 K/mcL (140-400); Red Blood Count 5.12 M/mcL (3.82-4.97); Red Cell Distribution Width 13.9 % (11.5-14.5); Segmented Neutrophils % 86.4 %; White Blood Count 24.1 K/mcL (4.3-11.1)
[2021-07-19 08:50] LABS: BUN/Creatinine Ratio 22 (6-26); Blood Urea Nitrogen 13 mg/dL (8-23); Calcium 8.5 mg/dL (8.6-10.3); Carbon Dioxide 19 mEq/L (23-29); Chloride 99 mEq/L (98-107); Glucose 292 mg/dL (70-105); Osmolality,Calculated 281 (280-300); Potassium 3.6 mEq/L (3.5-5.1); Sodium 130 mEq/L (136-145); eGFR For African Americans > 60 (> 60); eGFR For Non-African Americans > 60 (> 60)
[2021-07-19] MEDS: Melatonin 3 MG TABLET PO PRN (20:11)
[2021-07-19] MEDS: Insulin DETEMIR 100 UNIT/ML X5UNITS SUBQ SCH (20:15)
[2021-07-20 01:42] LABS: Basophils % 0.1 %; Hematocrit 40.7 % (35.3-44.9); Hemoglobin 13.6 g/dL (11.5-15.4); Immature Granulocytes % 0.6 % (0-4); Lymphocytes # 1.6 K/mcL (0.6-4.6); Lymphocytes % 7.6 %; Mean Corpuscular HGB Conc 33.4 g/dL (31.6-35.5); Mean Corpuscular Volume 83.9 fL (83.0-100.0); Mean Platelet Volume 11.2 fL (9.4-12.4); Monocytes # 1.9 K/mcL (0.0-1.3); Neutrophils # 17.6 K/mcL (1.6-8.9); Nucleated Red Blood Cells 0.4 /100 WBC (0); Platelet Count 324 K/mcL (140-400); Red Blood Count 4.85 M/mcL (3.82-4.97); Red Cell Distribution Width 13.8 % (11.5-14.5); Segmented Neutrophils % 82.7 %; White Blood Count 21.3 K/mcL (4.3-11.1)
[2021-07-20 02:05] LABS: BUN/Creatinine Ratio 37 (6-26); Blood Urea Nitrogen 26 mg/dL (8-23); Calcium 8.9 mg/dL (8.6-10.3); Carbon Dioxide 20 mEq/L (23-29); Chloride 100 mEq/L (98-107); Glucose 235 mg/dL (70-105); Osmolality,Calculated 284 (280-300); Potassium 3.9 mEq/L (3.5-5.1); Sodium 131 mEq/L (136-145); eGFR For African Americans > 60 (> 60); eGFR For Non-African Americans > 60 (> 60)
[2021-07-20] MEDS: Insulin LISPRO 300 UNITS/3 ML VIAL SUBQ SCH ×4 (07:47→21:41)
[2021-07-20] MEDS: Metoprolol XL (24 HR) Succ 50 MG TAB.ER.24H PO SCH (09:03)
[2021-07-20] MEDS: Multivit/Ca/Min/Fe/FA 1 TAB TABLET PO SCH (09:03)
[2021-07-20] MEDS: Lactobacillus 1 EACH CAP.SPRINK PO SCH ×2 (09:03→21:40)
[2021-07-20] MEDS: Aspirin 81 MG TAB.CHEW PO SCH (09:03)
[2021-07-20] MEDS: cefTRIAXone 2,000 MG in 0.9 % Sodium Chloride 20 ML IVP SCH (09:03)
[2021-07-20] MEDS: lisinopriL 5 MG TABLET PO SCH (09:48)
[2021-07-20] MEDS ORDERED: *HR* FentaNYL (PF) 100 MCG/2 ML VIAL ONE (10:50)
[2021-07-20] MEDS ORDERED: *HR* Midazolam HCl 2 MG/2 ML VIAL ONE (10:50)
[2021-07-20] MEDS ORDERED: 0.9 % Sodium Chloride 2,000 ML ONE (10:50)
[2021-07-20] MEDS ORDERED: Nitroglycerin 1,000 MCG/5 ML VIAL IV ONE ×2 (10:51→12:26)
[2021-07-20] MEDS ORDERED: Tirofiban 12.5 MG/250ML 12.5 MG/250 ML BAG ONE (10:51)
[2021-07-20] MEDS ORDERED: Heparin 1,000 UNITS/500 mL 500 ML ONE (10:51)
[2021-07-20] MEDS ORDERED: *HR* Heparin 10,000 UNIT/10 ML VIAL ONE ×2 (10:51→12:23)
[2021-07-20] MEDS ORDERED: ISOVUE-370 200 ML INFUS..BTL ONE (10:51)
[2021-07-20] MEDS ORDERED: Ondansetron 4 MG/2 ML VIAL ONE (11:52)
[2021-07-20] MEDS ORDERED: Furosemide 40 MG/4 ML VIAL ONE (12:10)
[2021-07-20] MEDS ORDERED: *HR* Ticagrelor 90 MG TABLET ONE (12:36)
[2021-07-20] MEDS ORDERED: Tirofiban 12.5 MG/250ML 12.5 MG/250 ML BAG IVC SCH (13:15)
[2021-07-20] MEDS: *HR* Rivaroxaban 10 MG TABLET PO SCH (18:49)
[2021-07-20] MEDS: *HR* Ticagrelor 90 MG TABLET PO SCH (21:40)
[2021-07-21 02:22] LABS: Basophils % 0.1 %; Hematocrit 37.3 % (35.3-44.9); Hemoglobin 12.5 g/dL (11.5-15.4); Immature Granulocytes % 0.6 % (0-4); Lymphocytes # 1.7 K/mcL (0.6-4.6); Lymphocytes % 9.1 %; Mean Corpuscular HGB Conc 33.5 g/dL (31.6-35.5); Mean Corpuscular Volume 83.6 fL (83.0-100.0); Mean Platelet Volume 10.4 fL (9.4-12.4); Monocytes # 1.8 K/mcL (0.0-1.3); Monocytes % 9.5 %; Neutrophils # 15.3 K/mcL (1.6-8.9); Nucleated Red Blood Cells 0.7 /100 WBC (0); Platelet Count 357 K/mcL (140-400); Red Blood Count 4.46 M/mcL (3.82-4.97); Red Cell Distribution Width 13.9 % (11.5-14.5); Segmented Neutrophils % 80.7 %
[2021-07-21 02:35] LABS: BUN/Creatinine Ratio 45 (6-26); Blood Urea Nitrogen 29 mg/dL (8-23); Calcium 8.4 mg/dL (8.6-10.3); Carbon Dioxide 22 mEq/L (23-29); Chloride 100 mEq/L (98-107); Glucose 273 mg/dL (70-105); Osmolality,Calculated 288 (280-300); Potassium 3.9 mEq/L (3.5-5.1); Sodium 131 mEq/L (136-145); eGFR For African Americans > 60 (> 60); eGFR For Non-African Americans > 60 (> 60)
[2021-07-21] MEDS: Insulin DETEMIR 100 UNIT/ML X5UNITS SUBQ SCH ×2 (06:54→21:20)
[2021-07-21] MEDS: Heparin 25,000UNIT/250ML 1/2NS 25,000 UNIT/250 ML IV.SOLN IVC SCH (06:54)
[2021-07-21] MEDS: Multivit/Ca/Min/Fe/FA 1 TAB TABLET PO SCH (07:50)
[2021-07-21] MEDS: Lactobacillus 1 EACH CAP.SPRINK PO SCH ×2 (07:50→21:20)
[2021-07-21] MEDS: Aspirin 81 MG TAB.CHEW PO SCH (07:50)
[2021-07-21] MEDS: cefTRIAXone 2,000 MG in 0.9 % Sodium Chloride 20 ML IVP SCH (07:50)
[2021-07-21] MEDS: Metoprolol XL (24 HR) Succ 50 MG TAB.ER.24H PO SCH (07:50)
[2021-07-21] MEDS: lisinopriL 5 MG TABLET PO SCH (07:50)
[2021-07-21] MEDS: *HR* Ticagrelor 90 MG TABLET PO SCH ×2 (07:50→21:20)
[2021-07-21] MEDS: Insulin LISPRO 300 UNITS/3 ML VIAL SUBQ SCH ×4 (07:51→21:21)
[2021-07-21] MEDS ORDERED: Furosemide 40 MG/4 ML VIAL IVP SCH (09:30)
[2021-07-21] MEDS: *HR* Rivaroxaban 10 MG TABLET PO SCH (16:36)
[2021-07-22 06:13] LABS: Basophils % 0.2 %; Eosinophils % 0.1 %; Hematocrit 37.9 % (35.3-44.9); Hemoglobin 12.5 g/dL (11.5-15.4); Immature Granulocytes % 0.5 % (0-4); Lymphocytes # 1.4 K/mcL (0.6-4.6); Mean Platelet Volume 10.2 fL (9.4-12.4); Monocytes # 1.9 K/mcL (0.0-1.3); Monocytes % 12.3 %; Neutrophils # 11.7 K/mcL (1.6-8.9); Nucleated Red Blood Cells 1.3 /100 WBC (0); Platelet Count 413 K/mcL (140-400); Red Blood Count 4.46 M/mcL (3.82-4.97); Red Cell Distribution Width 13.8 % (11.5-14.5); Segmented Neutrophils % 77.9 %; White Blood Count 15.1 K/mcL (4.3-11.1)
[2021-07-22 07:28] LABS: BUN/Creatinine Ratio 53 (6-26); Blood Urea Nitrogen 31 mg/dL (8-23); Calcium 9.2 mg/dL (8.6-10.3); Carbon Dioxide 21 mEq/L (23-29); Chloride 99 mEq/L (98-107); Glucose 315 mg/dL (70-105); Osmolality,Calculated 289 (280-300); Potassium 3.7 mEq/L (3.5-5.1); Sodium 130 mEq/L (136-145); eGFR For African Americans > 60 (> 60); eGFR For Non-African Americans > 60 (> 60)
[2021-07-22] MEDS: cefTRIAXone 2,000 MG in 0.9 % Sodium Chloride 20 ML IVP SCH (08:47)
[2021-07-22] MEDS: lisinopriL 5 MG TABLET PO SCH (08:48)
[2021-07-22] MEDS: Lactobacillus 1 EACH CAP.SPRINK PO SCH ×2 (08:48→20:45)
[2021-07-22] MEDS: Multivit/Ca/Min/Fe/FA 1 TAB TABLET PO SCH (08:48)
[2021-07-22] MEDS: Aspirin 81 MG TAB.CHEW PO SCH (08:48)
[2021-07-22] MEDS: Insulin LISPRO 300 UNITS/3 ML VIAL SUBQ SCH ×4 (08:48→20:46)
[2021-07-22] MEDS: *HR* Ticagrelor 90 MG TABLET PO SCH ×2 (08:48→20:46)
[2021-07-22] MEDS: Metoprolol XL (24 HR) Succ 50 MG TAB.ER.24H PO SCH (08:48)
[2021-07-22] MEDS: Insulin DETEMIR 100 UNIT/ML X5UNITS SUBQ SCH ×2 (09:52→20:47)
[2021-07-22] MEDS: *HR* Rivaroxaban 10 MG TABLET PO SCH (16:12)
[2021-07-22] MEDS: Melatonin 3 MG TABLET PO PRN (20:45)
[2021-07-23] MEDS: *HR* Metoprolol 5 MG/5 ML VIAL IVP PRN (02:33)
[2021-07-23] MEDS ORDERED: *HR* Metoprolol 5 MG/5 ML VIAL IVP ONE (06:54)
[2021-07-23] MEDS ORDERED: Pantoprazole 40 MG in 0.9 % Sodium Chloride Mini Bag 100 ML IVC SCH (07:00)
[2021-07-23] MEDS: Ondansetron 4 MG/2 ML VIAL IVP PRN (07:04)
[2021-07-23 07:47] LABS: Hematocrit 35.5 % (35.3-44.9)
[2021-07-23] MEDS ORDERED: Insulin LISPRO 300 UNITS/3 ML VIAL SUBQ SCH ×2 (08:06→08:07)
[2021-07-23] MEDS ORDERED: Insulin DETEMIR 100 UNIT/ML X5UNITS SUBQ ONE (08:24)
[2021-07-23] MEDS: *HR* Ticagrelor 90 MG TABLET PO SCH (08:52)
[2021-07-23] MEDS: Aspirin 81 MG TAB.CHEW PO SCH (08:52)
[2021-07-23] MEDS ORDERED: Insulin DETEMIR 100 UNIT/ML X5UNITS SUBQ SCH (09:00)
[2021-07-23] MEDS: cefTRIAXone 2,000 MG in 0.9 % Sodium Chloride 20 ML IVP SCH (09:02)
[2021-07-23] MEDS: Lactobacillus 1 EACH CAP.SPRINK PO SCH ×2 (09:05→21:58)
[2021-07-23] MEDS: Metoprolol XL (24 HR) Succ 50 MG TAB.ER.24H PO SCH (09:05)
[2021-07-23] MEDS: Multivit/Ca/Min/Fe/FA 1 TAB TABLET PO SCH (09:05)
[2021-07-23] MEDS: lisinopriL 5 MG TABLET PO SCH (09:05)
[2021-07-23] MEDS: Insulin LISPRO 300 UNITS/3 ML VIAL SUBQ SCH (09:31)
[2021-07-23] MEDS ORDERED: Nitroglycerin 0.4 MG TAB.SUBL SL PRN (09:38)
[2021-07-23 09:45] LABS: Bacteria,Urine Few per hpf (None-Few); Bilirubin,Urine Negative (Negative); Blood,Urine Large (Negative); Budding Yeast,Urine Many per hpf (None Seen); Clarity,Urine Ex.Turbid (Clear); Color,Urine Yellow (Yellow); Glucose,Urine (UA) >=1000 mg/dL (Normal); Ketones,Urine Negative (Negative); Leukocyte Esterase,Urine Large (Negative); Mucus,Urine Few per lpf (None-Few); Nitrite,Urine Negative (Negative); PH,Urine 5.5 pH Units (5.0-8.0); Protein,Urine 50 mg/dL (Neg-Trace); RBC,Urine TNTC per hpf (0-3); Renal Epithelial Cells,Urine Few per hpf (None-Few); Specific Gravity,Urine 1.016 (1.010-1.025); Squamous Epithelial Cell,Urine Few per hpf (None-Few); Urobilinogen,Urine Normal (Normal); WBC,Urine TNTC per hpf (0-3)
[2021-07-23 10:15] LABS: VBG HCO3 17 mEq/L (21-27); VBG PCO2 32 mmHg (41-51); VBG PH 7.32 pH Units (7.32-7.42); VBG PO2 52 mmHg (25-50)
[2021-07-23] MEDS ORDERED: Isovue-370 500 ML BOTTLE IVP ONE (10:23)
[2021-07-23] MEDS ORDERED: 0.9 % Sodium Chloride 500 ML IVC ONE (10:25)
[2021-07-23] MEDS ORDERED: 0.9 % Sodium Chloride 250 ML IVC ONE (10:29)
[2021-07-23 10:30] LABS: INR 2.7; Prothrombin Time 29.7 Seconds (9.4-12.1)
[2021-07-23 10:53] LABS: Albumin 3.1 g/dL (3.5-5.7); Bilirubin,Direct 0.2 mg/dL (0.0-0.2); Bilirubin,Indirect 0.3 mg/dL (0.0-1.0); Bilirubin,Total 0.5 mg/dL (0.3-1.0); Calcium 9.2 mg/dL (8.6-10.3); Globulin 3.2 g/dL (2.4-3.5); Potassium 4.8 mEq/L (3.5-5.1); Total Protein 6.3 g/dL (6.4-8.9); Troponin I 3.88 ng/mL (< 0.04)
[2021-07-23] MEDS ORDERED: Insulin Human Regular 10 UNIT in 0.9 % Sodium Chloride 10 ML IV ONE (10:54)
[2021-07-23] MEDS ORDERED: Vancomycin (wt based) 1,000 MG VIAL IVPB SCH (11:00)
[2021-07-23] MEDS ORDERED: Insulin Regular, Human 100 UNIT/ML IV PRN (11:01)
[2021-07-23] MEDS ORDERED: D5% in 0.45% NACL 1,000 ML IVC PRN (11:01)
[2021-07-23] MEDS ORDERED: D5% in 0.45% NACL w KCl 20 MEQ/1,000 ML MLS IVC PRN (11:01)
[2021-07-23] MEDS ORDERED: Morphine Sulfate 2 MG/ML SYRINGE IVP PRN (11:10)
[2021-07-23] MEDS ORDERED: *HR* Metoprolol 5 MG/5 ML VIAL IVP PRN (11:13)
[2021-07-23] MEDS ORDERED: 0.45 % Sodium Chloride w/KCl 20 MEQ/1,000 ML MLS IVC SCH (11:15)
[2021-07-23] MEDS ORDERED: RINGERS LACTATED IVC ONE (11:15)
[2021-07-23] MEDS ORDERED: methylPREDNISolone 125 MG/2 ML VIAL ONE (11:37)
[2021-07-23] MEDS ORDERED: Hydrocortisone Sodium Succ 100 MG/2 ML VIAL IVP STA (11:37)
[2021-07-23] MEDS ORDERED: Norepinephrine 4 MG/254 ML in 0.9% Sodium Chloride IVC ONE (12:00)
[2021-07-23] MEDS ORDERED: Vancomycin 1,250 MG/262.5 ML IV.SOLN IVPB SCH (12:00)
[2021-07-23] MEDS ORDERED: *HR* Rocuronium Bromide 50 MG/5 ML VIAL IVP ONE (12:00)
[2021-07-23] MEDS ORDERED: *HR* Amiodarone 450 MG/9 ML VIAL IVC ONE (12:00)
[2021-07-23] MEDS ORDERED: 0.9 % Sodium Chloride 1,000 ML ONE (12:25)
[2021-07-23] MEDS ORDERED: *HR* Heparin 5,000 UNIT/ML VIAL IVP ONE (12:27)
[2021-07-23] MEDS ORDERED: *HR* Heparin 5,000 UNIT/ML VIAL IVP PRN ×2 (12:27)
[2021-07-23] MEDS ORDERED: Heparin 25,000UNIT/250ML 1/2NS 25,000 UNIT/250 ML IV.SOLN IVC SCH (12:30)
[2021-07-23] MEDS ORDERED: FentaNYL (PF) 1,000 MCG/100 ML IV.SOLN ONE (12:37)
[2021-07-23] MEDS ORDERED: Albumin Human 5% 25.0 GM/500 ML IV.SOLN ONE (12:41)
[2021-07-23] MEDS ORDERED: Albumin 25% 25gram/100mL 25 GM/100 ML IV.SOLN IVPB ONE (12:50)
[2021-07-23] MEDS ORDERED: 0.9 % Sodium Chloride 250 ML ONE (12:50)
[2021-07-23] MEDS ORDERED: Calcium Gluconate 1gm/50mL 1 GM/50 ML BAG IVPB ONE (13:07)
[2021-07-23 13:12] LABS: Hematocrit 30.1 % (35.3-44.9); Mean Corpuscular HGB Conc 31.9 g/dL (31.6-35.5); Mean Corpuscular Hemoglobin 28.2 pg (28.0-33.3); Mean Corpuscular Volume 88.3 fL (83.0-100.0); Mean Platelet Volume 10.5 fL (9.4-12.4); Nucleated Red Blood Cells 3.9 /100 WBC (0); Platelet Count 372 K/mcL (140-400); Red Blood Count 3.41 M/mcL (3.82-4.97); Red Cell Distribution Width 13.7 % (11.5-14.5); White Blood Count 11.3 K/mcL (4.3-11.1)
[2021-07-23 13:14] LABS: Hemoglobin 9.6 g/dL (11.5-15.4)
[2021-07-23] MEDS ORDERED: *HR* Vasopressin 20 UNIT/ML VIAL ONE (13:14)
[2021-07-23 13:16] LABS: Immature Reticulocyte % 21.6 % (11.0-38.0); Retculocyte # 0.09 M/mcL (0.05-0.10); Reticulocyte % 2.7 % (1.6-2.8)
[2021-07-23 13:24] LABS: INR 2.7
[2021-07-23 13:26] LABS: Activated Partial Thrombo Time 29.7 Seconds (26.0-36.0)
[2021-07-23] MEDS ORDERED: 0.9 % Sodium Chloride 1,000 ML IVC SCH (13:30)
[2021-07-23 13:34] LABS: Heparin anti-factor XA UFH 1.43 IU/mL (0.30-0.70)
[2021-07-23 13:41] LABS: ABG Base Excess -9 mEq/L (-2 to 3); ABG HCO3 20 mEq/L (21-27); ABG Oxygen Saturation 95 % (95-98); ABG PCO2 64 mmHg (35-45); ABG PH 7.11 pH Units (7.32-7.45); ABG PO2 106 mmHg (85-104); ABG TCO2 22 mEq/L (20-26); Blood Gas Modality ASSIST CONTROL; Blood Gas VT 450 cc
[2021-07-23 13:47] LABS: Albumin 2.3 g/dL (3.5-5.7); Bilirubin,Direct 0.1 mg/dL (0.0-0.2); Bilirubin,Indirect 0.3 mg/dL (0.0-1.0); Bilirubin,Total 0.4 mg/dL (0.3-1.0); Calcium 7.7 mg/dL (8.6-10.3); Globulin 2.2 g/dL (2.4-3.5); Potassium 4.2 mEq/L (3.5-5.1); Total Protein 4.5 g/dL (6.4-8.9)
[2021-07-23] MEDS: Norepinephrine 4 MG/254 ML IV.SOLN IVC SCH ×4 (14:09→22:30)
[2021-07-23] MEDS: Cisatracurium 200 MG in 0.9 % Sodium Chloride 80 ML IVC SCH (14:18)
[2021-07-23 14:37] LABS: Lymphocytes # 2.7 K/mcL (0.6-4.6); Monocytes # 0.8 K/mcL (0.0-1.3)
[2021-07-23 14:38] LABS: Platelet Estimate Normal (Normal)
[2021-07-23] MEDS: Cefepime HCl 1,000 MG in 0.9 % Sodium Chloride 10 ML IVP SCH (14:38)
[2021-07-23] MEDS: Ringers Solution, Lactated 1,000 ML IVC SCH ×2 (14:47→23:54)
[2021-07-23] MEDS: Pantoprazole 40 MG in 0.9 % Sodium Chloride Mini Bag 100 ML IVC SCH ×3 (14:52→22:33)
[2021-07-23] MEDS: FentaNYL (PF) 1,000 MCG/100 ML IV.SOLN IVC SCH ×2 (14:57→19:35)
[2021-07-23] MEDS ORDERED: Artificial Tears SOLN 15 ML BOTTLE BOTH EYES PRN (17:43)
[2021-07-23] MEDS ORDERED: Pantoprazole 40 MG VIAL IVP SCH (18:00)
[2021-07-23 19:31] LABS: Calcium 7.5 mg/dL (8.6-10.3); Potassium 3.7 mEq/L (3.5-5.1)
[2021-07-23] MEDS: Vancomycin 1,250 MG/262.5 ML IV.SOLN IVPB SCH (19:47)
[2021-07-23] MEDS ORDERED: Dextrose Gel 15 GM/37.5 ML TUBE PO PRN ×2 (20:01)
[2021-07-23] MEDS ORDERED: D5% in Water 1,000 ML IVC PRN (20:01)
[2021-07-23] MEDS ORDERED: *HR* Dextrose 50 % in Water (Syg) 50 ML SYRINGE IVP PRN (20:01)
[2021-07-23 20:24] LABS: ABG Base Excess 1 mEq/L (-2 to 3); ABG HCO3 24 mEq/L (21-27); ABG Oxygen Saturation 100 % (95-98); ABG PCO2 31 mmHg (35-45); ABG PO2 210 mmHg (85-104); ABG TCO2 25 mEq/L (20-26); Blood Gas VT 450 cc
[2021-07-23 20:51] LABS: Hematocrit 30.4 % (35.3-44.9); Hemoglobin 10.6 g/dL (11.5-15.4); Mean Corpuscular HGB Conc 34.9 g/dL (31.6-35.5); Mean Corpuscular Volume 83.1 fL (83.0-100.0); Mean Platelet Volume 10.5 fL (9.4-12.4); Nucleated Red Blood Cells 3.5 /100 WBC (0); Platelet Count 272 K/mcL (140-400); Red Blood Count 3.66 M/mcL (3.82-4.97); Red Cell Distribution Width 13.4 % (11.5-14.5); White Blood Count 19.6 K/mcL (4.3-11.1)
[2021-07-23] MEDS: Artificial Tears SOLN 15 ML BOTTLE BOTH EYES SCH ×2 (20:55→23:56)
[2021-07-23] MEDS: Chlorhexidine Rinse 15 ML MOUTHWASH MM SCH (20:57)
[2021-07-23 21:26] LABS: Alanine Aminotransferase 3149 Units/L (7-52); Albumin 2.7 g/dL (3.5-5.7); Albumin/Globulin Ratio 1.3 (1.1-2.2); Alkaline Phosphatase 66 Units/L (34-104); Aspartate Amino Transferase > 3000 Units/L (13-39); Bilirubin,Direct 0.3 mg/dL (0.0-0.2); Bilirubin,Indirect 0.3 mg/dL (0.0-1.0); Bilirubin,Total 0.6 mg/dL (0.3-1.0); Globulin 2.1 g/dL (2.4-3.5); Total Protein 4.8 g/dL (6.4-8.9)
[2021-07-23] MEDS: MetroNIDAZOLE 500 MG/100 ML 500 MG/100 ML BAG IVPB SCH (21:55)
[2021-07-23 22:02] LABS: Monocytes # 2.7 K/mcL (0.0-1.3); Neutrophils # 14.9 K/mcL (1.6-8.9); Platelet Estimate Normal (Normal)
[2021-07-23] MEDS: Micafungin 100 MG in 0.9 % Sodium Chloride Mini Bag 100 ML IVPB SCH (22:45)
[2021-07-23 23:11] LABS: INR 3.4; Prothrombin Time 37.3 Seconds (9.4-12.1)
[2021-07-23 23:14] LABS: Activated Partial Thrombo Time 29.8 Seconds (26.0-36.0)
[2021-07-23] MEDS ORDERED: WATER IVC ONE (23:51)
[2021-07-23] MEDS ORDERED: ACETYLCYSTEINE IVC ONE (23:51)
[2021-07-23] MEDS ORDERED: D5 IVC ONE (23:51)
[2021-07-24] MEDS: Insulin LISPRO 300 UNITS/3 ML VIAL SUBQ SCH ×6 (00:01→21:40)
[2021-07-24] MEDS: Cefepime HCl 1,000 MG in 0.9 % Sodium Chloride 10 ML IVP SCH ×3 (00:04→23:52)
[2021-07-24] MEDS ORDERED: ACETYLCYSTEINE IVC ONE ×2 (00:30→02:00)
[2021-07-24] MEDS ORDERED: D5 IVC ONE ×2 (00:30→02:00)
[2021-07-24] MEDS ORDERED: WATER IVC ONE ×2 (00:30→02:00)
[2021-07-24] MEDS: Norepinephrine 4 MG/254 ML IV.SOLN IVC SCH ×8 (02:00→22:01)
[2021-07-24] MEDS: Ringers Solution, Lactated 1,000 ML IVC SCH ×3 (02:28→22:31)
[2021-07-24 03:43] LABS: Basophils % 0.2 %; Hematocrit 27.5 % (35.3-44.9); Hemoglobin 9.3 g/dL (11.5-15.4); Immature Granulocytes % 1.9 % (0-4); Lymphocytes % 3.1 %; Mean Corpuscular HGB Conc 33.8 g/dL (31.6-35.5); Mean Corpuscular Volume 85.7 fL (83.0-100.0); Monocytes # 1.1 K/mcL (0.0-1.3); Monocytes % 5.1 %; Nucleated Red Blood Cells 4.6 /100 WBC (0); Platelet Count 266 K/mcL (140-400); Red Blood Count 3.21 M/mcL (3.82-4.97); Segmented Neutrophils % 89.7 %; White Blood Count 20.8 K/mcL (4.3-11.1)
[2021-07-24 03:48] LABS: Lymphocytes # 0.6 K/mcL (0.6-4.6); Neutrophils # 18.7 K/mcL (1.6-8.9)
[2021-07-24 03:52] LABS: VBG Ionized Calcium 0.87 mmol/L (1.15-1.35)
[2021-07-24 03:53] LABS: INR 3.1; Prothrombin Time 34.7 Seconds (9.4-12.1)
[2021-07-24 04:03] LABS: Albumin 2.4 g/dL (3.5-5.7); Albumin/Globulin Ratio 1.2 (1.1-2.2); Alkaline Phosphatase 64 Units/L (34-104); BUN/Creatinine Ratio 63 (6-26); Bilirubin,Total 0.6 mg/dL (0.3-1.0); Blood Urea Nitrogen 106 mg/dL (8-23); Calcium 6.8 mg/dL (8.6-10.3); Carbon Dioxide 22 mEq/L (23-29); Chloride 99 mEq/L (98-107); Glucose 510 mg/dL (70-105); Magnesium 2.4 mg/dL (1.6-2.6); Osmolality,Calculated 342 (280-300); Phosphorous 5.8 mg/dL (2.7-4.5); Potassium 3.9 mEq/L (3.5-5.1); Sodium 138 mEq/L (136-145); Total Protein 4.4 g/dL (6.4-8.9); eGFR For African Americans 36 (> 60); eGFR For Non-African Americans 30 (> 60)
[2021-07-24 04:12] LABS: ABG Base Excess -3 mEq/L (-2 to 3); ABG HCO3 22 mEq/L (21-27); ABG Oxygen Saturation 99 % (95-98); ABG PCO2 37 mmHg (35-45); ABG PH 7.37 pH Units (7.32-7.45); ABG PO2 138 mmHg (85-104); ABG TCO2 23 mEq/L (20-26); Blood Gas VT 400 cc
[2021-07-24] MEDS ORDERED: Insulin Regular, Human 100 UNIT/ML IV ONE (04:12)
[2021-07-24] MEDS: Artificial Tears SOLN 15 ML BOTTLE BOTH EYES SCH ×6 (04:14→23:54)
[2021-07-24] MEDS: MetroNIDAZOLE 500 MG/100 ML 500 MG/100 ML BAG IVPB SCH ×3 (04:15→21:25)
[2021-07-24] MEDS: Pantoprazole 40 MG in 0.9 % Sodium Chloride Mini Bag 100 ML IVC SCH ×5 (04:18→21:28)
[2021-07-24] MEDS: Calcium Gluconate 1gm/50mL 1 GM/50 ML BAG IVPB PRN ×3 (04:36→18:18)
[2021-07-24] MEDS: FentaNYL (PF) 1,000 MCG/100 ML IV.SOLN IVC SCH ×2 (05:10→15:13)
[2021-07-24] MEDS: Cisatracurium 200 MG in 0.9 % Sodium Chloride 80 ML IVC SCH ×2 (05:20→22:07)
[2021-07-24 05:50] LABS: Alanine Aminotransferase 3449 Units/L (7-52); Aspartate Amino Transferase > 3000 Units/L (13-39)
[2021-07-24] MEDS: WATER IVC SCH ×2 (06:10→22:36)
[2021-07-24] MEDS: D5 IVC SCH ×2 (06:10→22:36)
[2021-07-24] MEDS: ACETYLCYSTEINE IVC SCH ×2 (06:10→22:36)
[2021-07-24] MEDS: Micafungin 100 MG in 0.9 % Sodium Chloride Mini Bag 100 ML IVPB SCH (07:45)
[2021-07-24] MEDS ORDERED: *HR* Heparin 5,000 UNIT/ML VIAL IVP ONE (08:56)
[2021-07-24] MEDS ORDERED: *HR* Heparin 5,000 UNIT/ML VIAL IVP PRN ×2 (08:56)
[2021-07-24] MEDS ORDERED: 0.9 % Sodium Chloride 250 ML IVC SCH (09:00)
[2021-07-24] MEDS ORDERED: Heparin 25,000UNIT/250ML 1/2NS 25,000 UNIT/250 ML IV.SOLN IVC SCH ×2 (09:00→09:15)
[2021-07-24] MEDS ORDERED: 0.9 % Sodium Chloride 250 ML ONE ×2 (09:50→11:54)
[2021-07-24] MEDS: Chlorhexidine Rinse 15 ML MOUTHWASH MM SCH ×2 (09:58→21:28)
[2021-07-24] MEDS: *HR* Ticagrelor 90 MG TABLET PO SCH (09:58)
[2021-07-24] MEDS: Metoprolol XL (24 HR) Succ 50 MG TAB.ER.24H PO SCH (09:59)
[2021-07-24] MEDS: lisinopriL 5 MG TABLET PO SCH (09:59)
[2021-07-24] MEDS: Multivit/Ca/Min/Fe/FA 1 TAB TABLET PO SCH (09:59)
[2021-07-24] MEDS: Lactobacillus 1 EACH CAP.SPRINK PO SCH ×2 (09:59→21:27)
[2021-07-24 10:30] LABS: Hematocrit 26.6 % (35.3-44.9); Mean Corpuscular HGB Conc 33.8 g/dL (31.6-35.5); Mean Corpuscular Hemoglobin 29.1 pg (28.0-33.3); Mean Corpuscular Volume 86.1 fL (83.0-100.0); Mean Platelet Volume 10.7 fL (9.4-12.4); Platelet Count 280 K/mcL (140-400); Red Blood Count 3.09 M/mcL (3.82-4.97); Red Cell Distribution Width 14.2 % (11.5-14.5); White Blood Count 20.3 K/mcL (4.3-11.1)
[2021-07-24 10:33] LABS: VBG Ionized Calcium 0.93 mmol/L (1.15-1.35)
[2021-07-24 10:39] LABS: INR 2.5; Prothrombin Time 27.8 Seconds (9.4-12.1)
[2021-07-24 10:41] LABS: Activated Partial Thrombo Time 29.7 Seconds (26.0-36.0)
[2021-07-24 10:53] LABS: Heparin anti-factor XA UFH 0.28 IU/mL (0.30-0.70)
[2021-07-24] MEDS ORDERED: Insulin Human Regular 250 UNIT in 0.9 % Sodium Chloride 247.5 ML IVC SCH (11:45)
[2021-07-24] MEDS: Cangrelor tetrasodium 50 MG in 0.9 % Sodium Chloride 250 ML IVC SCH (11:46)
[2021-07-24 13:02] LABS: INR 2.3
[2021-07-24 16:32] LABS: VBG Ionized Calcium 0.94 mmol/L (1.15-1.35)
[2021-07-24] MEDS: Vancomycin 1,250 MG/262.5 ML IV.SOLN IVPB SCH (17:19)
[2021-07-24] MEDS ORDERED: Amiodarone Premix 150 MG/100 ML BAG IVPB ONE (18:24)
[2021-07-24] MEDS ORDERED: Amiodarone Premix 360 MG/200 ML BAG IVC ONE (18:37)
[2021-07-25] MEDS: Cangrelor tetrasodium 50 MG in 0.9 % Sodium Chloride 250 ML IVC SCH ×2 (00:01→14:56)
[2021-07-25] MEDS: Insulin LISPRO 300 UNITS/3 ML VIAL SUBQ SCH ×6 (00:20→20:10)
[2021-07-25] MEDS: Amiodarone Premix 360 MG/200 ML BAG IVC SCH ×3 (00:36→14:56)
[2021-07-25] MEDS: Norepinephrine 4 MG/254 ML IV.SOLN IVC SCH ×11 (00:39→22:08)
[2021-07-25] MEDS: FentaNYL (PF) 1,000 MCG/100 ML IV.SOLN IVC SCH ×3 (01:18→20:51)
[2021-07-25] MEDS: MetroNIDAZOLE 500 MG/100 ML 500 MG/100 ML BAG IVPB SCH ×3 (02:44→20:05)
[2021-07-25] MEDS: Pantoprazole 40 MG in 0.9 % Sodium Chloride Mini Bag 100 ML IVC SCH ×4 (02:47→20:10)
[2021-07-25] MEDS: Artificial Tears SOLN 15 ML BOTTLE BOTH EYES SCH ×6 (04:12→22:37)
[2021-07-25 04:39] LABS: ABG Base Excess -7 mEq/L (-2 to 3); ABG HCO3 18 mEq/L (21-27); ABG Oxygen Saturation 94 % (95-98); ABG PCO2 34 mmHg (35-45); ABG PH 7.34 pH Units (7.32-7.45); ABG PO2 74 mmHg (85-104); ABG TCO2 19 mEq/L (20-26); Blood Gas VT 400 cc
[2021-07-25 04:51] LABS: BUN/Creatinine Ratio 65 (6-26); Blood Urea Nitrogen 93 mg/dL (8-23); Calcium 6.4 mg/dL (8.6-10.3); Carbon Dioxide 21 mEq/L (23-29); Chloride 107 mEq/L (98-107); Glucose 312 mg/dL (70-105); Osmolality,Calculated 333 (280-300); Potassium 4.1 mEq/L (3.5-5.1); Sodium 141 mEq/L (136-145); eGFR For African Americans 44 (> 60); eGFR For Non-African Americans 36 (> 60)
[2021-07-25] MEDS ORDERED: Insulin DETEMIR 100 UNIT/ML X5UNITS SUBQ ONE (07:00)
[2021-07-25 07:50] LABS: Mean Corpuscular HGB Conc 31.9 g/dL (31.6-35.5); Nucleated Red Blood Cells 19.3 /100 WBC (0); Platelet Count 155 K/mcL (140-400); Red Blood Count 1.55 M/mcL (3.82-4.97); White Blood Count 21.5 K/mcL (4.3-11.1)
[2021-07-25 07:52] LABS: VBG Ionized Calcium 0.87 mmol/L (1.15-1.35)
[2021-07-25 07:58] LABS: Hemoglobin 4.5 g/dL (11.5-15.4)
[2021-07-25 07:59] LABS: Hematocrit 14.1 % (35.3-44.9)
[2021-07-25] MEDS ORDERED: 0.9 % Sodium Chloride 250 ML IVC SCH (08:00)
[2021-07-25] MEDS: Chlorhexidine Rinse 15 ML MOUTHWASH MM SCH ×2 (08:04→20:06)
[2021-07-25] MEDS: Lactobacillus 1 EACH CAP.SPRINK PO SCH ×2 (08:05→20:07)
[2021-07-25] MEDS: lisinopriL 5 MG TABLET PO SCH (08:05)
[2021-07-25] MEDS: Metoprolol XL (24 HR) Succ 50 MG TAB.ER.24H PO SCH (08:05)
[2021-07-25] MEDS: Multivit/Ca/Min/Fe/FA 1 TAB TABLET PO SCH (08:05)
[2021-07-25] MEDS: Micafungin 100 MG in 0.9 % Sodium Chloride Mini Bag 100 ML IVPB SCH (08:05)
[2021-07-25 08:39] LABS: Hematocrit 14.3 % (35.3-44.9); Hemoglobin 4.5 g/dL (11.5-15.4)
[2021-07-25 08:53] LABS: Eosinophils # 0.4 K/mcL (0.0-0.6); Lymphocytes # 1.3 K/mcL (0.6-4.6); Monocytes # 0.4 K/mcL (0.0-1.3); Neutrophils # 19.4 K/mcL (1.6-8.9)
[2021-07-25 08:55] LABS: Hypochromasia Present (Not Present); Platelet Estimate Normal (Normal); Poikilocytosis 2+ (Not Present)
[2021-07-25] MEDS ORDERED: Micafungin 100 MG in 0.9 % Sodium Chloride Mini Bag 100 ML IVPB SCH (09:00)
[2021-07-25] MEDS ORDERED: Isovue-370 500 ML BOTTLE IVP ONE (09:00)
[2021-07-25] MEDS: Cefepime HCl 1,000 MG in 0.9 % Sodium Chloride 10 ML IVP SCH (12:01)
[2021-07-25 12:03] LABS: Hematocrit 17.8 % (35.3-44.9)
[2021-07-25 12:14] LABS: Hemoglobin 5.4 g/dL (11.5-15.4)
[2021-07-25 12:21] LABS: ABG Base Excess -23 mEq/L (-2 to 3); ABG HCO3 7 mEq/L (21-27); ABG Oxygen Saturation 95 % (95-98); ABG PCO2 32 mmHg (35-45); ABG PH 6.95 pH Units (7.32-7.45); ABG PO2 118 mmHg (85-104); ABG TCO2 8 mEq/L (20-26); Blood Gas VT 440 cc
[2021-07-25 13:06] LABS: Hematocrit 21.3 % (35.3-44.9); Hemoglobin 6.5 g/dL (11.5-15.4)
[2021-07-25 13:11] VITALS: TEMP 94
[2021-07-25 14:09] LABS: Alanine Aminotransferase 3108 Units/L (7-52); Albumin 2.2 g/dL (3.5-5.7); Albumin/Globulin Ratio 1.5 (1.1-2.2); Alkaline Phosphatase 82 Units/L (34-104); Aspartate Amino Transferase > 3000 Units/L (13-39); Bilirubin,Direct 0.6 mg/dL (0.0-0.2); Bilirubin,Indirect 0.4 mg/dL (0.0-1.0); Globulin 1.5 g/dL (2.4-3.5); Total Protein 3.7 g/dL (6.4-8.9)
[2021-07-25] MEDS: D5 IVC SCH (14:54)
[2021-07-25] MEDS: ACETYLCYSTEINE IVC SCH (14:54)
[2021-07-25] MEDS: WATER IVC SCH (14:54)
[2021-07-25 15:59] LABS: ABG Base Excess -18 mEq/L (-2 to 3); ABG HCO3 9 mEq/L (21-27); ABG Oxygen Saturation 97 % (95-98); ABG PCO2 26 mmHg (35-45); ABG PH 7.15 pH Units (7.32-7.45); ABG PO2 114 mmHg (85-104); ABG TCO2 10 mEq/L (20-26); Blood Gas VT 440 cc
[2021-07-25] MEDS: Sodium Bicarbonate 150 MEQ in D5% in Water 1,000 ML IVC SCH ×2 (16:25→22:36)
[2021-07-25] MEDS: Cisatracurium 200 MG in 0.9 % Sodium Chloride 80 ML IVC SCH (17:32)
[2021-07-25] MEDS: Vancomycin 1,250 MG/262.5 ML IV.SOLN IVPB SCH (17:37)
[2021-07-25] MEDS ORDERED: *HR* LORazepam 2 MG/ML VIAL IVP PRN (19:14)
[2021-07-25] MEDS ORDERED: Atropine Sulfate 1% 40 DROP/2 ML BOTTLE SL PRN (19:14)
[2021-07-25] MEDS ORDERED: Scopolamine Patch 1.5 MG PATCH.TD72 TD SCH (19:15)
[2021-07-25] MEDS ORDERED: Insulin DETEMIR 100 UNIT/ML X5UNITS SUBQ SCH (21:00)
[2021-07-25 21:03] VITALS: BP 167/31
[2021-07-25 21:23] VITALS: PULSE 82
[2021-07-25 22:04] VITALS: O2SAT 91
== END 2021-07-26 01:29 | disposition expired | DRG 853 ==
LOC: EMEROOARM 22:40 → 2NNU 22:40 → SUATTDRO 07-18 01:23 → 2NNU 07-18 02:15 → SUATTDRO 07-18 14:41 → 3BNU 07-19 13:22 → 2NENU 07-23 10:46 → ICNU 07-23 12:24
PROVIDERS: ADMIT Internal Medicine; ATTEND Student in an Organized Health Care Education/Training Program